=== PATIENT | male | born 1945 | race Caucasian/White ===

== ENCOUNTER → 2016-10-07 | Outpatient (CLI) | payer MEDICARE, OTHER ==
[2016-10-07 08:34] LABS: CHLORIDE,CL 108 mmol/L (98-110); SODIUM,NA 141 mmol/L (136-146)
== END ==
LOC: MW.CHFP 07:46
PROVIDERS: ATTEND Emergency Medicine
DX: I25.10 Atherosclerotic heart disease of native coronary artery without angina pectoris (principal); Z85.46 Personal history of malignant neoplasm of prostate
CPT/HCPCS: 36415; 80053; 80061; 84153; 85027

== ENCOUNTER → 2016-11-10 | Outpatient (CLI) | payer MEDICARE, OTHER | LOC: MW.CHFP 08:00 | PROVIDERS: ATTEND Emergency Medicine | DX: R05 Cough (principal); R09.82 Postnasal drip | CPT/HCPCS: G0463 ==

== ENCOUNTER 2019-05-13 10:10 | Observation (INO) | payer MEDICARE, OTHER ==
[2019-05-13] MEDS ORDERED: Sodium Chloride 0.9% 10 ML Syringe FLUSH PRN (10:16)
[2019-05-13] MEDS ORDERED: Sodium Chloride 0.9% 2.5 ML Syringe FLUSH PRN (10:16)
--- NOTE | 2019-05-13 10:16 | EDM.PDOC ---
ED HPI GENERAL MEDICAL PROBLEM - General Stated Complaint: UPPER ABDOMEN/CHEST PAIN Time Seen by Provider: 05/13/19 10:11 Source of Information: Reports: Patient History Limitations: Reports: No Limitations - History of Present Illness INITIAL COMMENTS - FREE TEXT/NARRATIVE: HISTORY AND PHYSICAL: History of present illness: Patient is a 74-year-old male who presents to the emergency room today with complaints of epigastric/chest pain. He states he has had three episodes, with the first one starting on Monday - which lasted anywhere from 15 minutes to an hour. Denies the pain being precipitated by eating or drinking. Reports that the area does feel tender during the episode. Has associated diaphoresis, nausea , and dry heaves. Patient reports when the pain started on Monday he did call his son who is a physician, he encouraged him to take some omeprazole. Patient states he did take the omeprazole on Monday evening. Today he went to breakfast and had decaf coffee and pancake; shortly after started having pain. Patient states he is concerned it could be his gallbladder; reports he has known gallstones but has never had any "real problem" with them before. Patient reports he is currently pain free. Patient has a known history of atrial fibrillation (on warfarin) and previous stent placement. Patient denies any fever, chills, headache, change in vision, syncope or near syncope. Denies any back pain, shortness of breath or cough. Denies any abdominal pain, nausea, vomiting, diarrhea, constipation or dysuria. Has not noted any blood in urine or stool. Patient has been eating and drinking appropriately. Review of systems: As per history of present illness and below otherwise all systems reviewed and negative. Past medical history: As per history of present illness and as reviewed below otherwise noncontributory. Surgical history: As per history of present illness and as reviewed below otherwise noncontributory. Social history: See social history for further information Family history: As per history of present illness and as reviewed below otherwise noncontributory. Physical exam: General: Well developed and well nourished 74-year-old male. Alert and oriented. Nontoxic appearing and in no acute distress. HEENT: Atraumatic, normocephalic, pupils equal and reactive bilaterally, negative for conjunctival pallor or scleral icterus, mucous membranes moist, trachea midline. No drooling or trismus noted. No meningeal signs. No hot potato voice noted. Lungs: Clear to auscultation, breath sounds equal bilaterally, chest nontender. Heart: S1S2, regular rate and rhythm without overt murmur Abdomen: Soft, nondistended, nontender. Negative for masses or hepatosplenomegaly. Negative for costovertebral tenderness. Pelvis: Stable nontender. Skin: Intact, warm, dry. No lesions or rashes noted. Extremities: Atraumatic, moves all extremities per self without difficulty or deficits, negative for cords or calf pain. Neurovascular unremarkable. Neuro: Awake, alert, oriented. Cranial nerves II through XII unremarkable. Cerebellum unremarkable. Motor and sensory unremarkable throughout. Exam nonfocal. Notes: Chest x-ray shows right basilar atelectasis. Nothing acute is otherwise seen. Ultrasound shows no acute findings. EKG shows the atrial fibrillation. Dr Mckeon, hospitalist electrophysiology nurse practitioner, was contacted on this patient. She will admit for observation for further care/management. Patient is aware and agreeable. Diagnostics: CBC, CMP, Troponin, EKG, INR, CXR, Gallbladder US Therapeutics: NS at 125ml/hr, Protonix Impression: Chest Pain History of Atrial Fib Epigastric Pain Plan: Observation admission to med/surg Definitive disposition and diagnosis as appropriate pending reevaluation and review of above. - Related Data Allergies Allergy/AdvReac Type Severity Reaction Status Date / Time latex Allergy Itching Verified 05/13/19 13:26 oxycodone HCl Allergy Stomach Verified 05/13/19 13:26 [From OxyContin] Upset Home Meds: Home Meds Carvedilol [Coreg] 12.5 mg PO BID 10/05/15 [History] Clopidogrel [Plavix] 75 mg PO DAILY 10/05/15 [History] Nitroglycerin [Nitrostat] 0.4 mg PO Q5M PRN 10/05/15 [History] Warfarin [Coumadin] 2.5 mg PO .MONTHUR 10/05/15 [History] Warfarin [Coumadin] 5 mg PO .[id number] 10/05/15 [History] atorvaSTATin [Lipitor] 40 mg PO BEDTIME 10/05/15 [History] Oxybutynin 5 mg PO QAM 05/13/19 [History] Past Medical History Cardiovascular History: Reports: High Cholesterol, Hypertension, CA, Stents Respiratory History: Reports: None Gastrointestinal History: Reports: None Genitourinary History: Reports: None Neurological History: Reports: None Psychiatric History: Reports: None Endocrine/Metabolic History: Reports: None Hematologic History: Reports: None Immunologic History: Reports: None Dermatologic History: Reports: None - Past Surgical History Head Surgeries/Procedures: Reports: None HEENT Surgical History: Reports: Tonsillectomy Musculoskeletal Surgical History: Reports: ORIF Other Musculoskeletal Surgeries/Procedures:: R hip ED ROS GENERAL - Review of Systems Review Of Systems: ROS reveals no pertinent complaints other than HPI. ED EXAM, GENERAL - Physical Exam Exam: See Below (See dictation) Course - Vital Signs Last Recorded V/S: Last Vital Signs Temp 97.9 F 05/13/19 12:03 Pulse 104 H 05/13/19 12:03 Resp 18 05/13/19 12:03 BP 102/63 05/13/19 12:03 Pulse Ox 98 05/13/19 12:03 - Orders/Labs/Meds Orders: Active Orders 24 hr Category Date Time Status Admission Status [Patient Status] [ADT] Stat ADT 05/13/19 11:36 Active Cardiac Monitoring [RC] . DIRECTED Care 05/13/19 11:36 Active Sodium Chloride 0.9% [Saline Flush] Med 05/13/19 10:16 Active 10 ml FLUSH ASDIRECTED PRN Sodium Chloride 0.9% [Saline Flush] Med 05/13/19 10:16 Active 2.5 ml FLUSH ASDIRECTED PRN Saline Lock Insert [OM.PC] Stat Oth 05/13/19 10:16 Ordered Medication Orders Acetaminophen (Tylenol) 650 mg PO Q4H PRN PRN Reason: Pain (Mild 1-3)/fever Atorvastatin Calcium (Lipitor) 40 mg PO BEDTIME ADAM Carvedilol (Coreg) 12.5 mg PO BID ADAM Clopidogrel Bisulfate (Plavix) 75 mg PO DAILY ADAM Morphine Sulfate (Morphine) 2 mg IVPUSH Q2H PRN PRN Reason: Pain (severe 7-10) Stop: 05/14/19 12:02 Nitroglycerin (Nitrostat) 0.4 mg SL Q5M PRN PRN Reason: Chest Pain Ondansetron HCl (Zofran Odt) 4 mg PO Q4H PRN PRN Reason: nausea, able to take PO Ondansetron HCl (Zofran) 4 mg IVPUSH Q4H PRN PRN Reason: Nausea Oxybutynin Chloride (Oxybutynin) 5 mg PO DAILY [facility] Pantoprazole Sodium (Protonix) 40 mg PO ACBREAKFAST [facility] Sodium Chloride (Saline Flush) 10 ml FLUSH ASDIRECTED PRN PRN Reason: Keep Vein Open Sodium Chloride (Saline Flush) 2.5 ml FLUSH ASDIRECTED PRN PRN Reason: Keep Vein Open Warfarin Sodium (Coumadin Ask) 1 each PO DAILY@1400 [facility] Last Admin: 05/13/19 16:16 Dose: Warfarin Sodium (Coumadin) 5 mg PO DAILY@1800 ONE Stop: 05/13/19 18:01 Labs: Laboratory Tests 05/13/19 05/13/19 05/13/19 Range/Units 10:30 10:30 10:30 WBC 9.35 (4.0-11.0) K/uL RBC 4.81 (4.50-5.90) M/uL Hgb 14.1 (13.0-17.0) g/dL Hct 42.9 (38.0-50.0) % MCV 89.2 (80.0-98.0) fL MCH 29.3 (27.0-32.0) pg MCHC 32.9 (31.0-37.0) g/dL RDW Std Deviation 47.2 (28.0-62.0) fl RDW Coeff of Rosa Isela 15 (11.0-15.0) % Plt Count 235 (150-400) K/uL MPV 10.10 (7.40-12.00) fL Add Manual Diff YES Neutrophils % (Manual) 76 (48.0-80.0) % Lymphocytes % (Manual) 9 L (16.0-40.0) % Monocytes % (Manual) 14 (0.0-15.0) % Eosinophils % (Manual) 1 (0.0-7.0) % Nucleated RBC % 0.0 /100WBC Absolute Seg Neuts 7.1 H (1.4-5.7) Lymphocytes # (Manual) 0.8 (0.6-2.4) Monocytes # (Manual) 1.3 H (0.0-0.8) Eosinophils # (Manual) 0.1 (0.0-0.7) Nucleated RBCs # 0 K/uL INR 2.11 Sodium 134 L (136-148) mmol/L Potassium 4.5 (3.5-5.1) mmol/L Chloride 98 (98-107) mmol/L Carbon Dioxide 25.8 (21.0-32.0) mmol/L BUN 18 (7.0-18.0) mg/dL Creatinine 1.3 (0.8-1.3) mg/dL Est Cr Clr Drug Dosing 56.34 mL/min Estimated GFR (MDRD) 54.0 ml/min Glucose 119 H (74-106) mg/dL Hemoglobin A1c (4.5-6.2) % Calcium 8.7 (8.5-10.1) mg/dL Total Bilirubin 1.4 H (0.2-1.0) mg/dL AST 57 H (15-37) IU/L ALT 56 (14-63) IU/L Alkaline Phosphatase 126 H (46-116) U/L Troponin I < 0.050 (0.000-0.056) ng/mL Total Protein 7.9 (6.4-8.2) g/dL Albumin 2.8 L (3.4-5.0) g/dL Globulin 5.1 H (2.6-4.0) g/dL Albumin/Globulin Ratio 0.6 L (0.9-1.6) Lipase 150 (73-393) U/L TSH 3rd Generation (0.36-3.74) uIU/mL 05/13/19 05/13/19 Range/Units 10:30 10:30 WBC (4.0-11.0) K/uL RBC (4.50-5.90) M/uL Hgb (13.0-17.0) g/dL Hct (38.0-50.0) % MCV (80.0-98.0) fL MCH (27.0-32.0) pg MCHC (31.0-37.0) g/dL RDW Std Deviation (28.0-62.0) fl RDW Coeff of Rosa Isela (11.0-15.0) % Plt Count (150-400) K/uL MPV (7.40-12.00) fL Add Manual Diff Neutrophils % (Manual) (48.0-80.0) % Lymphocytes % (Manual) (16.0-40.0) % Monocytes % (Manual) (0.0-15.0) % Eosinophils % (Manual) (0.0-7.0) % Nucleated RBC % /100WBC Absolute Seg Neuts (1.4-5.7) Lymphocytes # (Manual) (0.6-2.4) Monocytes # (Manual) (0.0-0.8) Eosinophils # (Manual) (0.0-0.7) Nucleated RBCs # K/uL INR Sodium (136-148) mmol/L Potassium (3.5-5.1) mmol/L Chloride (98-107) mmol/L Carbon Dioxide (21.0-32.0) mmol/L BUN (7.0-18.0) mg/dL Creatinine (0.8-1.3) mg/dL Est Cr Clr Drug Dosing mL/min Estimated GFR (MDRD) ml/min Glucose (74-106) mg/dL Hemoglobin A1c 6.1 (4.5-6.2) % Calcium (8.5-10.1) mg/dL Total Bilirubin (0.2-1.0) mg/dL AST (15-37) IU/L ALT (14-63) IU/L Alkaline Phosphatase (46-116) U/L Troponin I (0.000-0.056) ng/mL Total Protein (6.4-8.2) g/dL Albumin (3.4-5.0) g/dL Globulin (2.6-4.0) g/dL Albumin/Globulin Ratio (0.9-1.6) Lipase (73-393) U/L TSH 3rd Generation 3.30 (0.36-3.74) uIU/mL Meds: Medications Generic Name Dose Route Start Last Admin Trade Name Freq PRN Reason Stop Dose Admin Acetaminophen 650 mg 05/13/19 12:00 Tylenol PO Q4H PRN Pain (Mild 1-3)/fever Atorvastatin Calcium 40 mg 05/13/19 21:00 Lipitor PO BEDTIME [facility] Carvedilol 12.5 mg 05/13/19 21:00 Coreg PO BID [facility] Clopidogrel Bisulfate 75 mg 05/14/19 09:00 Plavix PO DAILY [facility] Morphine Sulfate 2 mg 05/13/19 12:00 Morphine IVPUSH 05/14/19 12:02 Q2H PRN Pain (severe 7-10) Nitroglycerin 0.4 mg 05/13/19 12:07 Nitrostat SL Q5M PRN Chest Pain Ondansetron HCl 4 mg 05/13/19 12:00 Zofran Odt PO Q4H PRN nausea, able to take PO Ondansetron HCl 4 mg 05/13/19 12:00 Zofran IVPUSH Q4H PRN Nausea Oxybutynin Chloride 5 mg 05/14/19 09:00 Oxybutynin PO DAILY [facility] Pantoprazole Sodium 40 mg 05/14/19 07:30 Protonix PO ACBREAKFAST [facility] Sodium Chloride 10 ml 05/13/19 10:16 Saline Flush FLUSH ASDIRECTED PRN Keep Vein Open Sodium Chloride 2.5 ml 05/13/19 10:16 Saline Flush FLUSH ASDIRECTED PRN Keep Vein Open Warfarin Sodium 1 each 05/13/19 14:00 05/13/19 16:16 Coumadin Ask PO Not Given DAILY@1400 [facility] Warfarin Sodium 5 mg 05/13/19 18:00 Coumadin PO 05/13/19 18:01 DAILY@1800 ONE Discontinued Medications Generic Name Dose Route Start Last Admin Trade Name Freq PRN Reason Stop Dose Admin Aspirin 81 mg 05/14/19 09:00 Halfprin PO DAILY [facility] Al Hydroxide/Mg Hydroxide 15 0 ml 05/13/19 12:03 05/13/19 13:55 ml/ Lidocaine HCl 5 ml PO 05/13/19 12:04 Not Given ONETIME ONE Sodium Chloride 1,000 mls @ 125 mls/hr 05/13/19 10:35 05/13/19 10:56 Normal Saline IV 05/13/19 18:34 125 mls/hr STAT ONE Administration Sodium Chloride Confirm 05/13/19 10:51 05/13/19 13:08 Normal Saline Administered 05/13/19 10:52 Not Given Dose 20 mls @ as directed .ROUTE .STK-MED ONE Oxybutynin Chloride 5 mg 05/13/19 14:00 05/13/19 15:16 Oxybutynin PO Not Given TID [facility] Pantoprazole Sodium 80 mg 05/13/19 10:35 05/13/19 10:56 Protonix Iv IVPUSH 05/13/19 10:36 80 mg .BOLUS ONE Administration Departure - Departure Time of Disposition: 16:17 Disposition: Refer to Observation Clinical Impression: Chest pain, rule out acute myocardial infarction, Epigastric abdominal pain - My Orders Last 24 Hours: My Active Orders 05/13/19 10:16 Sodium Chloride 0.9% [Saline Flush] 10 ml FLUSH ASDIRECTED PRN Sodium Chloride 0.9% [Saline Flush] 2.5 ml FLUSH ASDIRECTED PRN Saline Lock Insert [OM.PC] Stat 05/13/19 11:36 Admission Status [Patient Status] [ADT] Stat Cardiac Monitoring [RC] . DIRECTED - Assessment/Plan Last 24 Hours: My Active Orders 05/13/19 10:16 Sodium Chloride 0.9% [Saline Flush] 10 ml FLUSH ASDIRECTED PRN Sodium Chloride 0.9% [Saline Flush] 2.5 ml FLUSH ASDIRECTED PRN Saline Lock Insert [OM.PC] Stat 05/13/19 11:36 Admission Status [Patient Status] [ADT] Stat Cardiac Monitoring [RC] . DIRECTED
[2019-05-13] MEDS ORDERED: Sodium Chloride 0.9% 1,000 ML IV ONE (10:35)
[2019-05-13] MEDS ORDERED: Pantoprazole 40 MG Vial IVPUSH ONE (10:35)
[2019-05-13] MEDS ORDERED: Sodium Chloride 0.9% 20 ML ONE (10:51)
--- NOTE | 2019-05-13 11:12 | CR ---
Chest: Portable view of the chest was obtained. Comparison: Prior chest x-ray 03/31/16. Linear densities are seen within the right lung base most likely due to atelectasis. Lungs otherwise are clear. Heart size is within normal limits for portable technique. Thoracic aorta appears within normal limits. Slight degenerative change is noted within both shoulders as well as endplate spurring scattered within the spine. Impression: 1. Right basilar atelectasis. 2. Nothing acute is otherwise seen. Diagnostic code #2 MTDD
[2019-05-13 11:22] LABS: BLOOD UREA NITROGEN,BUN 18 mg/dL (7.0-18.0); CARBON DIOXIDE,CO2 25.8 mmol/L (21.0-32.0); CHLORIDE,CL 98 mmol/L (98-107); GLUCOSE RANDOM 119 mg/dL (74-106); LIPASE 150 U/L (73-393); POTASSIUM,K 4.5 mmol/L (3.5-5.1); SODIUM,NA 134 mmol/L (136-148)
--- NOTE | 2019-05-13 11:26 | US ---
Limited abdominal ultrasound: Multiple real-time images of the right upper abdomen were obtained. Liver shows no focal abnormality. Pancreas is incompletely seen. Visualized portions of the pancreas appear within normal limits. Gallbladder shows no shadowing gallstones. No gallbladder wall thickening or biliary duct dilatation is seen. Right kidney shows no hydronephrosis or mass. Right kidney length is 12.2 cm. Impression: No abnormality is appreciated on right upper quadrant abdominal ultrasound exam. Diagnostic code #1 MTDD
[2019-05-13] MEDS ORDERED: Morphine 10 MG/ML Syringe IVPUSH PRN (12:00)
[2019-05-13] MEDS ORDERED: Ondansetron 4 MG/2 ML SDV IVPUSH PRN (12:00)
[2019-05-13] MEDS ORDERED: Ondansetron 4 MG Tab.DIS PO PRN (12:00)
[2019-05-13] MEDS ORDERED: Acetaminophen 325 MG Tab PO PRN (12:00)
[2019-05-13] MEDS ORDERED: Alum Hydrox/Mag Hydrox/Simeth 15 ML, Lidocaine 2% 5 ML PO ONE ×2 (12:03)
[2019-05-13] MEDS ORDERED: Nitroglycerin 0.4 MG Tab.SL SL PRN (12:07)
[2019-05-13 12:29] LABS: HEMOGLOBIN A1C 6.1 % (4.5-6.2)
--- NOTE | 2019-05-13 13:31 | PCM.HP.2 ---
H&P History of Present Illness - General Date of Service: 05/13/19 Admit Problem/Dx: Admission Diagnosis/Problem Admission Diagnosis/Problem Chest pain, rule out acute myocardial infarction - History of Present Illness Initial Comments - Free Text/Narative: 74 y/o male with history of CAD s/p stent placement. Presenting to the ER complaining of epigastric pain for the past 3-4 days. Patient states that he started having sharp epigastric pain on Monday night when laying down. Took some Tums and pain resolved. Pain is intermittent, worse after eating. Had pain this morning after eating some pancakes. No vomiting but does endorse some dry heaves. No diaphoresis, radiation to neck or arms. No trauma to abdomen or chest. denies any dysuria, diarrhea. Has been taking some omeprazole since yesterday. No chest pain or dyspnea with exertion. In the ER, patient was asymptomatic. No chest pain. Troponin was negative. EKG showed Afib, rate controlled. No acute ST changes. Chest xray showed right basilar atelectasis. RUQ U/S was negative for any gallstones. - Related Data Allergies/Adverse Reactions: Allergies Allergy/AdvReac Type Severity Reaction Status Date / Time latex Allergy Itching Verified 05/13/19 13:26 oxycodone HCl Allergy Stomach Verified 05/13/19 13:26 [From OxyContin] Upset Home Medications: Home Meds Carvedilol [Coreg] 12.5 mg PO BID 10/05/15 [History] Clopidogrel [Plavix] 75 mg PO DAILY 10/05/15 [History] Nitroglycerin [Nitrostat] 0.4 mg PO Q5M PRN 10/05/15 [History] Warfarin [Coumadin] 2.5 mg PO .MONTHUR 10/05/15 [History] Warfarin [Coumadin] 5 mg PO .TUESWEDFRISATSUN 10/05/15 [History] atorvaSTATin [Lipitor] 40 mg PO BEDTIME 10/05/15 [History] Oxybutynin 5 mg PO QAM 05/13/19 [History] Past Medical History Cardiovascular History: Reports: High Cholesterol, Hypertension, AL, Stents Respiratory History: Reports: None Gastrointestinal History: Reports: Other (See Below) Other Gastrointestinal History: heartburn if overeating Genitourinary History: Reports: Prostate Disorder Other Genitourinary History: states has had prostate surgery for cancer in 1998 Neurological History: Reports: None Psychiatric History: Reports: None Endocrine/Metabolic History: Reports: None Hematologic History: Reports: None Immunologic History: Reports: None Oncologic (Cancer) History: Reports: Prostate Dermatologic History: Reports: None - Infectious Disease History Infectious Disease History: Reports: Chicken Pox - Past Surgical History Head Surgeries/Procedures: Reports: None HEENT Surgical History: Reports: Tonsillectomy Male Surgical History: Reports: Prostatectomy Other Male Surgeries/Procedures: urinates frequently in small ammounts. Musculoskeletal Surgical History: Reports: Hip Replacement Other Musculoskeletal Surgeries/Procedures:: R hip Social & Family History - Tobacco Use Smoking Status *Q: Former Smoker Years of Tobacco use: 20 Used Tobacco, but Quit: Yes Month/Year Tobacco Last Used: 1998 Second Hand Smoke Exposure: No - Caffeine Use Caffeine Use: Reports: Coffee, Soda - Alcohol Use Days Per Week of Alcohol Use: 1 Number of Drinks Per Day: 1 Total Drinks Per Week: 1 Date of Last Drink: 04/10/19 - Recreational Drug Use Recreational Drug Use: No H&P Review of Systems - Review of Systems: Review Of Systems: ROS reveals no pertinent complaints other than HPI. Exam - Exam Exam: See Below - Vital Signs Vital Signs: Last Vital Signs Temp 36.6 C 05/13/19 12:00 Pulse 104 H 05/13/19 12:00 Resp 16 05/13/19 12:00 BP 110/69 05/13/19 12:00 Pulse Ox 97 05/13/19 12:00 Weight: 36.6 kg - Exam General: Alert, Oriented, Cooperative HEENT: Mucosa Moist & [place] Lungs: Clear to Auscultation, Normal Respiratory Effort. No: Crackles, Wheezing Cardiovascular: Irregular Rhythm GI/Abdominal Exam: Normal Bowel Sounds, Soft, Non-Tender Extremities: Normal Inspection, No Pedal Edema Skin: Warm, Dry Neuro Extensive - Mental Status: Alert, Oriented x3 - Patient Data Lab Results Last 24 hrs: Laboratory Results - last 24 hr 05/13/19 05/13/19 05/13/19 Range/Units 10:30 10:30 10:30 WBC 9.35 (4.0-11.0) K/uL RBC 4.81 (4.50-5.90) M/uL Hgb 14.1 (13.0-17.0) g/dL Hct 42.9 (38.0-50.0) % MCV 89.2 (80.0-98.0) fL MCH 29.3 (27.0-32.0) pg MCHC 32.9 (31.0-37.0) g/dL RDW Std Deviation 47.2 (28.0-62.0) fl RDW Coeff of Rosa Isela 15 (11.0-15.0) % Plt Count 235 (150-400) K/uL MPV 10.10 (7.40-12.00) fL Add Manual Diff YES Neutrophils % (Manual) 76 (48.0-80.0) % Lymphocytes % (Manual) 9 L (16.0-40.0) % Monocytes % (Manual) 14 (0.0-15.0) % Eosinophils % (Manual) 1 (0.0-7.0) % Nucleated RBC % 0.0 /100WBC Absolute Seg Neuts 7.1 H (1.4-5.7) Lymphocytes # (Manual) 0.8 (0.6-2.4) Monocytes # (Manual) 1.3 H (0.0-0.8) Eosinophils # (Manual) 0.1 (0.0-0.7) Nucleated RBCs # 0 K/uL INR 2.11 Sodium 134 L (136-148) mmol/L Potassium 4.5 (3.5-5.1) mmol/L Chloride 98 (98-107) mmol/L Carbon Dioxide 25.8 (21.0-32.0) mmol/L BUN 18 (7.0-18.0) mg/dL Creatinine 1.3 (0.8-1.3) mg/dL Est Cr Clr Drug Dosing 56.34 mL/min Estimated GFR (MDRD) 54.0 ml/min Glucose 119 H (74-106) mg/dL Hemoglobin A1c (4.5-6.2) % Calcium 8.7 (8.5-10.1) mg/dL Total Bilirubin 1.4 H (0.2-1.0) mg/dL AST 57 H (15-37) IU/L ALT 56 (14-63) IU/L Alkaline Phosphatase 126 H (46-116) U/L Troponin I < 0.050 (0.000-0.056) ng/mL Total Protein 7.9 (6.4-8.2) g/dL Albumin 2.8 L (3.4-5.0) g/dL Globulin 5.1 H (2.6-4.0) g/dL Albumin/Globulin Ratio 0.6 L (0.9-1.6) Lipase 150 (73-393) U/L TSH 3rd Generation (0.36-3.74) uIU/mL 05/13/19 05/13/19 Range/Units 10:30 10:30 WBC (4.0-11.0) K/uL RBC (4.50-5.90) M/uL Hgb (13.0-17.0) g/dL Hct (38.0-50.0) % MCV (80.0-98.0) fL MCH (27.0-32.0) pg MCHC (31.0-37.0) g/dL RDW Std Deviation (28.0-62.0) fl RDW Coeff of Rosa Isela (11.0-15.0) % Plt Count (150-400) K/uL MPV (7.40-12.00) fL Add Manual Diff Neutrophils % (Manual) (48.0-80.0) % Lymphocytes % (Manual) (16.0-40.0) % Monocytes % (Manual) (0.0-15.0) % Eosinophils % (Manual) (0.0-7.0) % Nucleated RBC % /100WBC Absolute Seg Neuts (1.4-5.7) Lymphocytes # (Manual) (0.6-2.4) Monocytes # (Manual) (0.0-0.8) Eosinophils # (Manual) (0.0-0.7) Nucleated RBCs # K/uL INR Sodium (136-148) mmol/L Potassium (3.5-5.1) mmol/L Chloride (98-107) mmol/L Carbon Dioxide (21.0-32.0) mmol/L BUN (7.0-18.0) mg/dL Creatinine (0.8-1.3) mg/dL Est Cr Clr Drug Dosing mL/min Estimated GFR (MDRD) ml/min Glucose (74-106) mg/dL Hemoglobin A1c 6.1 (4.5-6.2) % Calcium (8.5-10.1) mg/dL Total Bilirubin (0.2-1.0) mg/dL AST (15-37) IU/L ALT (14-63) IU/L Alkaline Phosphatase (46-116) U/L Troponin I (0.000-0.056) ng/mL Total Protein (6.4-8.2) g/dL Albumin (3.4-5.0) g/dL Globulin (2.6-4.0) g/dL Albumin/Globulin Ratio (0.9-1.6) Lipase (73-393) U/L TSH 3rd Generation 3.30 (0.36-3.74) uIU/mL Result Diagrams: 05/13/19 10:30 05/13/19 10:30 Problem List Initiated/Reviewed/Updated: Yes Orders Last 24hrs: Active Orders 24 hr Category Date Time Status Admission Status [Patient Status] [ADT] Stat ADT 05/13/19 11:36 Active Bedrest Bathroom Privileges [RC] ASDIRECTED Care 05/13/19 12:00 Inactive Cardiac Monitoring [RC] . DIRECTED Care 05/13/19 11:36 Active Intake and Output [RC] Q12H Care 05/13/19 12:00 Active Oxygen Therapy [RC] PRN Care 05/13/19 12:00 Active Up With Assistance [RC] ASDIRECTED Care 05/13/19 13:06 Active VTE/DVT Education [RC] PER UNIT ROUTINE Care 05/13/19 12:00 Active Vital Signs [RC] Q4H Care 05/13/19 12:00 Active Heart Healthy Diet [DIET] Diet 05/13/19 Lunch Active CBC WITH AUTO DIFF [HEME] AM Lab 05/14/19 05:11 Ordered COMPREHENSIVE METABOLIC PN,CMP [CHEM] AM Lab 05/14/19 05:11 Ordered INR,PT,PROTHROMBIN TIME [COAG] AM Lab 05/14/19 05:11 Ordered TROPONIN I [CHEM] Q3H Lab 05/13/19 14:00 Ordered TROPONIN I [CHEM] Q3H Lab 05/13/19 17:00 Ordered TROPONIN I [CHEM] Q3H Lab 05/13/19 20:00 Ordered Acetaminophen [Tylenol] Med 05/13/19 12:00 Active 650 mg PO Q4H PRN Aspirin [Halfprin] Med 05/14/19 09:00 Active 81 mg PO DAILY Carvedilol [Coreg] Med 05/13/19 21:00 Active 12.5 mg PO BID Clopidogrel [Plavix] Med 05/14/19 09:00 Active 75 mg PO DAILY Morphine Med 05/13/19 12:00 Active 2 mg IVPUSH Q2H PRN Nitroglycerin [Nitrostat] Med 05/13/19 12:07 Active 0.4 mg SL Q5M PRN Ondansetron [Zofran ODT] Med 05/13/19 12:00 Active 4 mg PO Q4H PRN Ondansetron [Zofran] Med 05/13/19 12:00 Active 4 mg IVPUSH Q4H PRN Oxybutynin Med 05/13/19 14:00 Active 5 mg PO TID Pantoprazole [ProTONIX] Med 05/14/19 07:30 Active 40 mg PO ACBREAKFAST Sodium Chloride 0.9% [Normal Saline] 1,000 ml Med 05/13/19 10:35 Active IV STAT Sodium Chloride 0.9% [Saline Flush] Med 05/13/19 10:16 Active 10 ml FLUSH ASDIRECTED PRN Sodium Chloride 0.9% [Saline Flush] Med 05/13/19 10:16 Active 2.5 ml FLUSH ASDIRECTED PRN Warfarin Dosing [Coumadin Ask] Med 05/13/19 14:00 Active 1 each PO DAILY@1400 Warfarin [Coumadin] Med 05/13/19 18:00 Once 5 mg PO DAILY@1800 ONE atorvaSTATin [Lipitor] Med 05/13/19 21:00 Active 40 mg PO BEDTIME Saline Lock Insert [OM.PC] Stat Oth 05/13/19 10:16 Ordered Resuscitation Status Routine Resus Stat 05/13/19 12:00 Ordered Medication Orders Acetaminophen (Tylenol) 650 mg PO Q4H PRN PRN Reason: Pain (Mild 1-3)/fever Aspirin (Halfprin) 81 mg PO DAILY ADAM Atorvastatin Calcium (Lipitor) 40 mg PO BEDTIME ADAM Carvedilol (Coreg) 12.5 mg PO BID ADAM Clopidogrel Bisulfate (Plavix) 75 mg PO DAILY ADAM Sodium Chloride (Normal Saline) 1,000 mls @ 125 mls/hr IV STAT ONE Stop: 05/13/19 18:34 Last Admin: 05/13/19 10:56 Dose: 125 mls/hr Morphine Sulfate (Morphine) 2 mg IVPUSH Q2H PRN PRN Reason: Pain (severe 7-10) Stop: 05/14/19 12:02 Nitroglycerin (Nitrostat) 0.4 mg SL Q5M PRN PRN Reason: Chest Pain Ondansetron HCl (Zofran Odt) 4 mg PO Q4H PRN PRN Reason: nausea, able to take PO Ondansetron HCl (Zofran) 4 mg IVPUSH Q4H PRN PRN Reason: Nausea Oxybutynin Chloride (Oxybutynin) 5 mg PO TID ADAM Pantoprazole Sodium (Protonix) 40 mg PO ACBREAKFAST [facility] Sodium Chloride (Saline Flush) 10 ml FLUSH ASDIRECTED PRN PRN Reason: Keep Vein Open Sodium Chloride (Saline Flush) 2.5 ml FLUSH ASDIRECTED PRN PRN Reason: Keep Vein Open Warfarin Sodium (Coumadin Ask) 1 each PO DAILY@1400 [facility] Warfarin Sodium (Coumadin) 5 mg PO DAILY@1800 ONE Stop: 05/13/19 18:01 Assessment/Plan Comment:: A: 1. Epigastric pain, ACS rule out 2. Afib, on warfarin 3. PMD CAD s/p stents, hypertension P: 1. Epigastric pain. Suspect PUD, however since patient is high risk due to his cardiac history, we will trend troponins Q3H x3. Telemetry. Aspirin, Morphine, Nitroglycerin. Ordered Echo, HgA1c, TSH, lipid panel. Pantoprazole 40 mg PO daily. GI cocktail PRN. 2. Afib, rate controlled. Continue home dose of warfarin. Monitor INR daily. Continue Carvedilol. 3. PMH CAD s/p stents, HTN- will resume home medications. Dispo: 1-2 days
[2019-05-13] MEDS ORDERED: Oxybutynin 5 MG Tab PO SCH (14:00)
[2019-05-13] MEDS ORDERED: Warfarin 2.5 MG Tab PO ONE (18:00)
[2019-05-13] MEDS: Carvedilol 12.5 MG Tab PO SCH (20:12)
[2019-05-13] MEDS ORDERED: atorvaSTATin 40 MG Tab PO SCH (21:00)
[2019-05-14 06:11] LABS: BLOOD UREA NITROGEN,BUN 14 mg/dL (7.0-18.0); CARBON DIOXIDE,CO2 26.3 mmol/L (21.0-32.0); CHLORIDE,CL 104 mmol/L (98-107); GLUCOSE RANDOM 99 mg/dL (74-106); SODIUM,NA 137 mmol/L (136-148)
[2019-05-14] MEDS ORDERED: Morphine 2 MG/ML Syringe IVPUSH PRN (07:30)
[2019-05-14] MEDS ORDERED: Pantoprazole 40 MG Tab.CR PO SCH (07:30)
[2019-05-14] MEDS: Carvedilol 12.5 MG Tab PO SCH (08:14)
[2019-05-14] MEDS ORDERED: Aspirin 81 MG Tab.EC PO SCH (09:00)
[2019-05-14] MEDS ORDERED: Oxybutynin 5 MG Tab PO SCH (09:00)
[2019-05-14] MEDS ORDERED: Clopidogrel 75 MG Tab PO SCH (09:00)
[2019-05-14] MEDS ORDERED: Warfarin 2.5 MG Tab PO SCH (09:00)
[2019-05-14 12:19] VITALS: BP 121/52; PULSE 78
--- NOTE | 2019-05-14 14:08 | ECHO ---
EXAM DATE: 05/13/19 PATIENT'S AGE: 74 The echocardiogram report can be seen in this patient's EMR (Electronic Medical Record) in the Reports section. The report has also been scanned into PACs. MIKE
--- NOTE | 2019-05-14 14:14 | PCM.DCSUM1 ---
Discharge Summary - Hospital Course Free Text/Narrative:: 74 y/o male with history of CAD s/p stent placement, Afib on warfarin who presented to the ER complaining of epigastric pain for the past 1 week. Worse at night after eating and laying down. Recently started taking omeprazole but did not work. He was admitted for ACS rule out due to his high risk and cardiac history. EKG was negative for any ST changes. Serial troponins were negative. Patient was asymptomatic during this hospitalization. No chest pain or epigastric pain at time of discharge. Echo showed some mild/moderate mitral regurgitation. His symptoms were attributed to PUD and was discharged home on pantoprazole 40 mg PO daily. In addition, he would benefit from an outpatient stress test due to his cardiac history and upper endoscopy if symptoms do not resolve with PPI. He was advised to follow-up with his PCP in 1-2 weeks. - Discharge Data Discharge Date: 05/14/19 Discharge Disposition: Home, Self-Care 01 Condition: Good - Referral to Home Health Primary Care Physician: Sher Goodrich MD - Patient Instructions Diet: Heart Healthy Diet Activity: As Tolerated Notify Provider of: Fever, Increased Pain, Swelling and Redness, Nausea and/or Vomiting - Discharge Plan *PRESCRIPTION DRUG MONITORING PROGRAM REVIEWED*: Not Applicable *COPY OF PRESCRIPTION DRUG MONITORING REPORT IN PATIENT [place]: Not Applicable Prescriptions/Med Rec: atorvaSTATin [Lipitor] 40 mg PO BEDTIME 30 Days #30 tablet Pantoprazole [ProTONIX] 40 mg PO ACBREAKFAST 30 Days #30 tab.cr Home Medications: Home Meds Carvedilol [Coreg] 12.5 mg PO BID 10/05/15 [History] Nitroglycerin [Nitrostat] 0.4 mg PO Q5M PRN 10/05/15 [History] Warfarin [Coumadin] 2.5 mg PO .MONTHUR 10/05/15 [History] Warfarin [Coumadin] 5 mg PO .TUESWEDFRISATSUN 10/05/15 [History] atorvaSTATin [Lipitor] 40 mg PO BEDTIME 10/05/15 [History] Oxybutynin 5 mg PO QAM 05/13/19 [History] Pantoprazole [ProTONIX] 40 mg PO ACBREAKFAST 30 Days #30 tab.cr 05/14/19 [Rx] atorvaSTATin [Lipitor] 40 mg PO BEDTIME 30 Days #30 tablet 05/14/19 [Rx] Patient Handouts: Peptic Ulcer, Nonspecific Chest Pain, Atorvastatin tablets, Pantoprazole tablets Forms: ED Department Discharge Referrals: Sher Goodrich MD [Primary Care Provider] - 05/22/19 3:15 pm - Discharge Summary/Plan Comment DC Time >30 min.: No - Patient Data Vitals - Most Recent: Last Vital Signs Temp 36.3 C 05/14/19 11:00 Pulse 78 05/14/19 11:00 Resp 18 05/14/19 11:00 BP 121/52 L 05/14/19 11:00 Pulse Ox 95 05/14/19 11:00 Weight - Most Recent: 36.6 kg I&O - Last 24 hours: Intake & Output 05/13/19 05/14/19 05/14/19 22:59 06:59 14:59 Intake Total 1125 840 400 Output Total 1200 800 750 Balance -75 40 -350 Lab Results - Last 24 hrs: Laboratory Results - last 24 hr 05/13/19 05/13/19 05/13/19 Range/Units 14:00 17:08 20:00 WBC (4.0-11.0) K/uL RBC (4.50-5.90) M/uL Hgb (13.0-17.0) g/dL Hct (38.0-50.0) % MCV (80.0-98.0) fL MCH (27.0-32.0) pg MCHC (31.0-37.0) g/dL RDW Std Deviation (28.0-62.0) fl RDW Coeff of Rosa Isela (11.0-15.0) % Plt Count (150-400) K/uL MPV (7.40-12.00) fL Add Manual Diff Neutrophils % (Manual) (48.0-80.0) % Band Neutrophils % % Lymphocytes % (Manual) (16.0-40.0) % Monocytes % (Manual) (0.0-15.0) % Eosinophils % (Manual) (0.0-7.0) % Basophils % (Manual) (0.0-1.5) % Nucleated RBC % /100WBC Absolute Seg Neuts (1.4-5.7) Band Neutrophils # Lymphocytes # (Manual) (0.6-2.4) Monocytes # (Manual) (0.0-0.8) Eosinophils # (Manual) (0.0-0.7) Basophils # (Manual) (0.0-0.1) Nucleated RBCs # K/uL INR Sodium (136-148) mmol/L Potassium (3.5-5.1) mmol/L Chloride (98-107) mmol/L Carbon Dioxide (21.0-32.0) mmol/L BUN (7.0-18.0) mg/dL Creatinine (0.8-1.3) mg/dL Est Cr Clr Drug Dosing mL/min Estimated GFR (MDRD) ml/min Glucose (74-106) mg/dL Calcium (8.5-10.1) mg/dL Total Bilirubin (0.2-1.0) mg/dL AST (15-37) IU/L ALT (14-63) IU/L Alkaline Phosphatase (46-116) U/L Troponin I < 0.050 < 0.050 < 0.050 (0.000-0.056) ng/mL Total Protein (6.4-8.2) g/dL Albumin (3.4-5.0) g/dL Globulin (2.6-4.0) g/dL Albumin/Globulin Ratio (0.9-1.6) Triglycerides (0-200) mg/dL Cholesterol (50-200) mg/dL LDL Cholesterol, Calc (60-180) mg/dL VLDL Cholesterol (5-55) mg/dL HDL Cholesterol (40-60) mg/dL Cholesterol/HDL Ratio (3.3-6.0) 05/14/19 05/14/19 05/14/19 Range/Units 05:18 05:18 05:18 WBC 7.42 (4.0-11.0) K/uL RBC 4.73 (4.50-5.90) M/uL Hgb 13.4 (13.0-17.0) g/dL Hct 41.5 (38.0-50.0) % MCV 87.7 (80.0-98.0) fL MCH 28.3 (27.0-32.0) pg MCHC 32.3 (31.0-37.0) g/dL RDW Std Deviation 46.9 (28.0-62.0) fl RDW Coeff of Rosa Isela 14 (11.0-15.0) % Plt Count 238 (150-400) K/uL MPV 9.90 (7.40-12.00) fL Add Manual Diff YES Neutrophils % (Manual) 47 L (48.0-80.0) % Band Neutrophils % 8 % Lymphocytes % (Manual) 14 L (16.0-40.0) % Monocytes % (Manual) 27 H (0.0-15.0) % Eosinophils % (Manual) 2 (0.0-7.0) % Basophils % (Manual) 2 H (0.0-1.5) % Nucleated RBC % 0.0 /100WBC Absolute Seg Neuts 3.5 (1.4-5.7) Band Neutrophils # 0.6 Lymphocytes # (Manual) 1.0 (0.6-2.4) Monocytes # (Manual) 2.0 H (0.0-0.8) Eosinophils # (Manual) 0.1 (0.0-0.7) Basophils # (Manual) 0.1 (0.0-0.1) Nucleated RBCs # 0 K/uL INR 2.14 Sodium 137 (136-148) mmol/L Potassium 4.0 (3.5-5.1) mmol/L Chloride 104 (98-107) mmol/L Carbon Dioxide 26.3 (21.0-32.0) mmol/L BUN 14 (7.0-18.0) mg/dL Creatinine 1.0 (0.8-1.3) mg/dL Est Cr Clr Drug Dosing 33.55 mL/min Estimated GFR (MDRD) > 60.0 ml/min Glucose 99 (74-106) mg/dL Calcium 8.4 L (8.5-10.1) mg/dL Total Bilirubin 0.7 (0.2-1.0) mg/dL AST 43 H (15-37) IU/L ALT 62 (14-63) IU/L Alkaline Phosphatase 119 H (46-116) U/L Troponin I (0.000-0.056) ng/mL Total Protein 7.1 (6.4-8.2) g/dL Albumin 2.6 L (3.4-5.0) g/dL Globulin 4.5 H (2.6-4.0) g/dL Albumin/Globulin Ratio 0.6 L (0.9-1.6) Triglycerides 72 (0-200) mg/dL Cholesterol 99 (50-200) mg/dL LDL Cholesterol, Calc 62 (60-180) mg/dL VLDL Cholesterol 14 (5-55) mg/dL HDL Cholesterol 23 L (40-60) mg/dL Cholesterol/HDL Ratio 4.3 (3.3-6.0) Med Orders - Current: Current Medications Discontinued Medications Acetaminophen (Tylenol) 650 mg PO Q4H PRN PRN Reason: Pain (Mild 1-3)/fever Aspirin (Halfprin) 81 mg PO DAILY [facility] Atorvastatin Calcium (Lipitor) 40 mg PO BEDTIME [facility] Last Admin: 05/13/19 20:12 Dose: 40 mg Carvedilol (Coreg) 12.5 mg PO BID [facility] Last Admin: 05/14/19 08:14 Dose: 12.5 mg Clopidogrel Bisulfate (Plavix) 75 mg PO DAILY [facility] Al Hydroxide/Mg Hydroxide 15 (ml/ Lidocaine HCl 5 ml) 0 ml PO ONETIME ONE Stop: 05/13/19 12:04 Last Admin: 05/13/19 13:55 Dose: Not Given Sodium Chloride (Normal Saline) 1,000 mls @ 125 mls/hr IV STAT ONE Stop: 05/13/19 18:34 Last Admin: 05/13/19 10:56 Dose: 125 mls/hr Sodium Chloride (Normal Saline) Confirm Administered Dose 20 mls @ as directed .ROUTE .STK-MED ONE Stop: 05/13/19 10:52 Last Admin: 05/13/19 13:08 Dose: Not Given Morphine Sulfate (Morphine) 2 mg IVPUSH Q2H PRN PRN Reason: Pain (severe 7-10) Stop: 05/14/19 12:02 Morphine Sulfate (Morphine) 2 mg IVPUSH Q2H PRN PRN Reason: Pain (severe 7-10) Stop: 05/14/19 12:02 Nitroglycerin (Nitrostat) 0.4 mg SL Q5M PRN PRN Reason: Chest Pain Ondansetron HCl (Zofran Odt) 4 mg PO Q4H PRN PRN Reason: nausea, able to take PO Ondansetron HCl (Zofran) 4 mg IVPUSH Q4H PRN PRN Reason: Nausea Oxybutynin Chloride (Oxybutynin) 5 mg PO TID [facility] Last Admin: 05/13/19 15:16 Dose: Not Given Oxybutynin Chloride (Oxybutynin) 5 mg PO DAILY [facility] Last Admin: 05/14/19 08:14 Dose: 5 mg Pantoprazole Sodium (Protonix Iv) 80 mg IVPUSH .BOLUS ONE Stop: 05/13/19 10:36 Last Admin: 05/13/19 10:56 Dose: 80 mg Pantoprazole Sodium (Protonix) 40 mg PO ACBREAKFAST [facility] Last Admin: 05/14/19 08:14 Dose: 40 mg Sodium Chloride (Saline Flush) 10 ml FLUSH ASDIRECTED PRN PRN Reason: Keep Vein Open Sodium Chloride (Saline Flush) 2.5 ml FLUSH ASDIRECTED PRN PRN Reason: Keep Vein Open Warfarin Sodium (Coumadin Ask) 1 each PO DAILY@1400 [facility] Last Admin: 05/13/19 16:16 Dose: Not Given Warfarin Sodium (Coumadin) 2.5 mg PO DAILY@1800 ONE Stop: 05/13/19 18:01 Last Admin: 05/13/19 17:43 Dose: 2.5 mg Warfarin Sodium (Coumadin) 5 mg PO DAILY@1800 ONE Stop: 05/14/19 18:01
[2019-05-14] MEDS ORDERED: Warfarin 5 MG Tab PO ONE (18:00)
== END 2019-05-14 12:20 | disposition home or self-care (01) ==
LOC: MW.ED 10:10 → MW.MS 11:45
PROVIDERS: ADMIT Student in an Organized Health Care Education/Training Program; ATTEND Student in an Organized Health Care Education/Training Program
DX: R10.13 Epigastric pain (principal); I25.10 Atherosclerotic heart disease of native coronary artery without angina pectoris; I48.91 Unspecified atrial fibrillation; E78.00 Pure hypercholesterolemia, unspecified; I10 Essential (primary) hypertension; Z79.01 Long term (current) use of anticoagulants; Z95.5 Presence of coronary angioplasty implant and graft; Z79.899 Other long term (current) drug therapy; Z91.040 Latex allergy status; Z88.5 Allergy status to narcotic agent; Z87.891 Personal history of nicotine dependence
CPT/HCPCS: 36415; 71045; 71045-26; 76705; 76705-26; 80053; 80061; 83036; 83690; 84443; 84484; 85025; 85610; 93005; 93306; 96361; 96374; 99282; 99284; A9270-GY; C9113; J7040

== ENCOUNTER 2019-05-25 08:19 | Observation (INO) | payer MEDICARE, OTHER ==
[2019-05-25] MEDS ORDERED: Sodium Chloride 0.9% 2.5 ML Syringe FLUSH PRN (08:21)
[2019-05-25] MEDS ORDERED: Nitroglycerin 0.4 MG Tab.SL SL PRN (08:21)
[2019-05-25] MEDS ORDERED: Sodium Chloride 0.9% 10 ML Syringe FLUSH PRN (08:21)
[2019-05-25] MEDS ORDERED: Sodium Chloride 0.9% 250 ML IV ONE (08:26)
--- NOTE | 2019-05-25 08:26 | EDM.PDOC ---
ED HPI GENERAL MEDICAL PROBLEM - General Stated Complaint: CHEST PAIN Time Seen by Provider: 05/25/19 08:21 Source of Information: Reports: Patient History Limitations: Reports: No Limitations - History of Present Illness INITIAL COMMENTS - FREE TEXT/NARRATIVE: History of present illness: []Patient woke up at 4 AM this morning with 8/10 right-sided dull chest pain with sweating. Patient does have coronary artery disease and has a stent. He denies any recent illnesses with fevers, chills, cough, abdominal pain, vomiting or diarrhea. Review of systems: As per history of present illness and below otherwise all systems reviewed and negative. Past medical history: As per history of present illness and as reviewed below otherwise noncontributory. Surgical history: As per history of present illness and as reviewed below otherwise noncontributory. Social history: No reported history of drug or alcohol abuse. Family history: As per history of present illness and as reviewed below otherwise noncontributory. Physical exam: General: Well developed, well nourished in NAD HEENT: Atraumatic, normocephalic, pupils reactive, negative for conjunctival pallor or scleral icterus, mucous membranes moist, throat clear, neck supple, nontender, trachea midline. Lungs: Clear to auscultation, breath sounds equal bilaterally, chest nontender. Heart: S1S2, regular, negative for clicks, rubs, or JVD. Abdomen: NABS, Soft, nondistended, nontender. Negative for masses or hepatosplenomegaly. Negative for costovertebral tenderness. Pelvis: Stable nontender. Genitourinary: Deferred. Rectal: Deferred. Extremities: Atraumatic, negative for cords or calf pain. Neurovascular unremarkable. Neuro: Awake, alert, oriented. Cranial nerves II through XII unremarkable. Cerebellum unremarkable. Motor and sensory unremarkable throughout. Exam nonfocal. Skin:warm and dry Diagnostics: EKG, chest x-ray, CBC, chemistry, troponin, inr Therapeutics: ivf, levaquin, nitro ED Course: stable Impression: chest apin Prescriptions: none Plan: admit to hopitalist Definitive disposition and diagnosis as appropriate pending reevaluation and review of above. chest Pain Score (Numeric/FACES): 2 - Related Data Allergies Allergy/AdvReac Type Severity Reaction Status Date / Time latex Allergy Itching Verified 05/25/19 10:07 oxycodone HCl Allergy Stomach Verified 05/25/19 10:07 [From OxyContin] Upset Home Meds: Home Meds Carvedilol [Coreg] 12.5 mg PO BID 10/05/15 [History] Nitroglycerin [Nitrostat] 0.4 mg PO Q5M PRN 10/05/15 [History] Warfarin [Coumadin] 2.5 mg PO .MONTHUR 10/05/15 [History] Warfarin [Coumadin] 5 mg PO .TUESWEDFRISATSUN 10/05/15 [History] atorvaSTATin [Lipitor] 40 mg PO BEDTIME 10/05/15 [History] Oxybutynin 5 mg PO QAM 05/13/19 [History] Clopidogrel [Plavix] 75 mg PO DAILY 05/25/19 [History] Digoxin [Lanoxin] 250 mcg PO DAILY 05/25/19 [History] Past Medical History Cardiovascular History: Reports: High Cholesterol, Hypertension, [place], Stents Respiratory History: Reports: None Gastrointestinal History: Reports: None Other Gastrointestinal History: heartburn if overeating Genitourinary History: Reports: None Other Genitourinary History: states has had prostate surgery for cancer in 1998 Neurological History: Reports: None Psychiatric History: Reports: None Endocrine/Metabolic History: Reports: None Hematologic History: Reports: None Immunologic History: Reports: None Oncologic (Cancer) History: Reports: Prostate Dermatologic History: Reports: None - Infectious Disease History Infectious Disease History: Reports: Chicken Pox - Past Surgical History Head Surgeries/Procedures: Reports: None HEENT Surgical History: Reports: Tonsillectomy Musculoskeletal Surgical History: Reports: ORIF Other Musculoskeletal Surgeries/Procedures:: R hip Social & Family History - Caffeine Use Caffeine Use: Reports: Coffee, Soda ED ROS GENERAL - Review of Systems Review Of Systems: See Below ED EXAM, GENERAL - Physical Exam Exam: See Below Course - Vital Signs Last Recorded V/S: Last Vital Signs Temp 97.2 F 05/25/19 10:06 Pulse 81 05/25/19 10:06 Resp 16 05/25/19 10:06 BP 96/62 05/25/19 10:06 Pulse Ox 98 05/25/19 10:06 - Orders/Labs/Meds Orders: Active Orders 24 hr Category Date Time Status Patient Status [ADT] Stat ADT 05/25/19 09:13 Active Cardiac Monitoring [RC] . DIRECTED Care 05/25/19 08:21 Active EKG Documentation Completion [RC] STAT Care 05/25/19 08:21 Active CULTURE BLOOD [BC] Stat Lab 05/25/19 09:00 Received CULTURE BLOOD [BC] Stat Lab 05/25/19 09:10 Received Nitroglycerin [Nitrostat] Med 05/25/19 08:21 Active 0.4 mg SL Q5M PRN Sodium Chloride 0.9% [Normal Saline] 1,000 ml Med 05/25/19 09:15 Active IV ASDIRECTED Sodium Chloride 0.9% [Normal Saline] 250 ml Med 05/25/19 08:45 Active IV ASDIRECTED Sodium Chloride 0.9% [Normal Saline] 250 ml Med 05/25/19 09:00 Active IV ASDIRECTED Sodium Chloride 0.9% [Saline Flush] Med 05/25/19 08:21 Active 10 ml FLUSH ASDIRECTED PRN Sodium Chloride 0.9% [Saline Flush] Med 05/25/19 08:21 Active 2.5 ml FLUSH ASDIRECTED PRN Blood Culture x2 Reflex Set [OM.PC] Stat Oth 05/25/19 08:48 Ordered Saline Lock Insert [OM.PC] Stat Oth 05/25/19 08:21 Ordered Medication Orders Sodium Chloride (Normal Saline) 250 mls @ 999 mls/hr IV ASDIRECTED [facility] Last Admin: 05/25/19 08:39 Dose: 999 mls/hr Sodium Chloride (Normal Saline) 250 mls @ 999 mls/hr IV ASDIRECTED ADAM Last Admin: 05/25/19 08:54 Dose: 999 mls/hr Sodium Chloride (Normal Saline) 1,000 mls @ 125 mls/hr IV ASDIRECTED ADAM Last Infusion: 05/25/19 09:19 Dose: 100 mls/hr Admin: 05/25/19 09:14 Dose: 125 mls/hr Nitroglycerin (Nitrostat) 0.4 mg SL Q5M PRN PRN Reason: Chest Pain Sodium Chloride (Saline Flush) 10 ml FLUSH ASDIRECTED PRN PRN Reason: Keep Vein Open Sodium Chloride (Saline Flush) 2.5 ml FLUSH ASDIRECTED PRN PRN Reason: Keep Vein Open Labs: Laboratory Tests 05/25/19 05/25/19 05/25/19 Range/Units 08:22 08:22 08:22 WBC 13.26 H (4.0-11.0) K/uL RBC 4.76 (4.50-5.90) M/uL Hgb 14.0 (13.0-17.0) g/dL Hct 42.6 (38.0-50.0) % MCV 89.5 (80.0-98.0) fL MCH 29.4 (27.0-32.0) pg MCHC 32.9 (31.0-37.0) g/dL RDW Std Deviation 50.1 (28.0-62.0) fl RDW Coeff of Rosa Isela 15 (11.0-15.0) % Plt Count 341 (150-400) K/uL MPV 10.40 (7.40-12.00) fL Neut % (Auto) 74.0 (48.0-80.0) % Lymph % (Auto) 12.3 L (16.0-40.0) % Hendry % (Auto) 11.3 (0.0-15.0) % Eos % (Auto) 2.1 (0.0-7.0) % Baso % (Auto) 0.3 (0.0-1.5) % Neut # (Auto) 9.8 H (1.4-5.7) K/uL Lymph # (Auto) 1.6 (0.6-2.4) K/uL Hendry # (Auto) 1.5 H (0.0-0.8) K/uL Eos # (Auto) 0.3 (0.0-0.7) K/uL Baso # (Auto) 0.0 (0.0-0.1) K/uL Nucleated RBC % 0.0 /100WBC Nucleated RBCs # 0 K/uL INR 2.05 Sodium 142 (136-148) mmol/L Potassium 4.4 (3.5-5.1) mmol/L Chloride 104 (98-107) mmol/L Carbon Dioxide 29.8 (21.0-32.0) mmol/L BUN 13 (7.0-18.0) mg/dL Creatinine 1.0 (0.8-1.3) mg/dL Est Cr Clr Drug Dosing 73.24 mL/min Estimated GFR (MDRD) > 60.0 ml/min Glucose 127 H (74-106) mg/dL Calcium 9.0 (8.5-10.1) mg/dL Total Bilirubin 1.7 H (0.2-1.0) mg/dL AST 54 H (15-37) IU/L ALT 110 H (14-63) IU/L Alkaline Phosphatase 375 H (46-116) U/L Troponin I < 0.050 (0.000-0.056) ng/mL Total Protein 8.3 H (6.4-8.2) g/dL Albumin 2.6 L (3.4-5.0) g/dL Globulin 5.7 H (2.6-4.0) g/dL Albumin/Globulin Ratio 0.5 L (0.9-1.6) Meds: Medications Generic Name Dose Route Start Last Admin Trade Name Freq PRN Reason Stop Dose Admin Sodium Chloride 250 mls @ 999 mls/hr 05/25/19 08:45 05/25/19 08:39 Normal Saline IV 999 mls/hr ASDIRECTED ADAM Administration Sodium Chloride 250 mls @ 999 mls/hr 05/25/19 09:00 05/25/19 08:54 Normal Saline IV 999 mls/hr ASDIRECTED ADAM Administration Sodium Chloride 1,000 mls @ 125 mls/hr 05/25/19 09:15 05/25/19 09:19 Normal Saline IV 100 mls/hr ASDIRECTED ADAM Infusion Nitroglycerin 0.4 mg 05/25/19 08:21 Nitrostat SL Q5M PRN Chest Pain Sodium Chloride 10 ml 05/25/19 08:21 Saline Flush FLUSH ASDIRECTED PRN Keep Vein Open Sodium Chloride 2.5 ml 05/25/19 08:21 Saline Flush FLUSH ASDIRECTED PRN Keep Vein Open Discontinued Medications Generic Name Dose Route Start Last Admin Trade Name Freq PRN Reason Stop Dose Admin Sodium Chloride 250 mls @ 999 mls/hr 05/25/19 08:26 05/25/19 08:38 Normal Saline IV 05/25/19 08:41 Not Given .Bolus ONE Levofloxacin/Dextrose 500 mg/ 100 mls @ 100 mls/hr 05/25/19 09:20 05/25/19 09 :29 Premix IV 05/25/19 10:19 100 mls/hr ONETIME ONE Administration Departure - Departure Time of Disposition: 09:45 Disposition: Refer to Observation Condition: Good Clinical Impression: Chest pain - My Orders Last 24 Hours: My Active Orders 05/25/19 08:21 Cardiac Monitoring [RC] . DIRECTED EKG Documentation Completion [RC] STAT Nitroglycerin [Nitrostat] 0.4 mg SL Q5M PRN Sodium Chloride 0.9% [Saline Flush] 10 ml FLUSH ASDIRECTED PRN Sodium Chloride 0.9% [Saline Flush] 2.5 ml FLUSH ASDIRECTED PRN Saline Lock Insert [OM.PC] Stat 05/25/19 08:45 Sodium Chloride 0.9% [Normal Saline] 250 ml IV ASDIRECTED 05/25/19 08:48 Blood Culture x2 Reflex Set [OM.PC] Stat 05/25/19 09:00 CULTURE BLOOD [BC] Stat Sodium Chloride 0.9% [Normal Saline] 250 ml IV ASDIRECTED 05/25/19 09:10 CULTURE BLOOD [BC] Stat 05/25/19 09:13 Patient Status [ADT] Stat 05/25/19 09:15 Sodium Chloride 0.9% [Normal Saline] 1,000 ml IV ASDIRECTED - Assessment/Plan Last 24 Hours: My Active Orders 05/25/19 08:21 Cardiac Monitoring [RC] . DIRECTED EKG Documentation Completion [RC] STAT Nitroglycerin [Nitrostat] 0.4 mg SL Q5M PRN Sodium Chloride 0.9% [Saline Flush] 10 ml FLUSH ASDIRECTED PRN Sodium Chloride 0.9% [Saline Flush] 2.5 ml FLUSH ASDIRECTED PRN Saline Lock Insert [OM.PC] Stat 05/25/19 08:45 Sodium Chloride 0.9% [Normal Saline] 250 ml IV ASDIRECTED 05/25/19 08:48 Blood Culture x2 Reflex Set [OM.PC] Stat 05/25/19 09:00 CULTURE BLOOD [BC] Stat Sodium Chloride 0.9% [Normal Saline] 250 ml IV ASDIRECTED 05/25/19 09:10 CULTURE BLOOD [BC] Stat 05/25/19 09:13 Patient Status [ADT] Stat 05/25/19 09:15 Sodium Chloride 0.9% [Normal Saline] 1,000 ml IV ASDIRECTED
[2019-05-25] MEDS ORDERED: Sodium Chloride 0.9% 250 ML IV SCH ×2 (08:45→09:00)
--- NOTE | 2019-05-25 08:53 | CR ---
INDICATION: Chest pain. TECHNIQUE: Portable chest. COMPARISON: 05/13/2019. FINDINGS: Heart and mediastinum: No change. There is crowding of the central pulmonary vascular markings. Lungs and pleura: No pneumothorax some stable linear opacities or atelectasis at the right lung base. IMPRESSION: Stable chest. Dictated by Kamari Stratton MD @ May 25 2019 8:45AM Signed by Dr. Kamari Stratton @ May 25 2019 8:51AM
[2019-05-25 08:57] LABS: BLOOD UREA NITROGEN,BUN 13 mg/dL (7.0-18.0); CARBON DIOXIDE,CO2 29.8 mmol/L (21.0-32.0); CHLORIDE,CL 104 mmol/L (98-107); GLUCOSE RANDOM 127 mg/dL (74-106); POTASSIUM,K 4.4 mmol/L (3.5-5.1); SODIUM,NA 142 mmol/L (136-148)
[2019-05-25] MEDS: Sodium Chloride 0.9% 1,000 ML IV SCH ×2 (09:14→16:37)
[2019-05-25] MEDS ORDERED: Levofloxacin/Dextrose 5%-Water 500 MG in Premix Bag 1 BAG IV ONE (09:20)
--- NOTE | 2019-05-25 13:07 | PCM.HP.2 ---
H&P History of Present Illness - General Date of Service: 05/25/19 Admit Problem/Dx: Admission Diagnosis/Problem Admission Diagnosis/Problem Chest pain - History of Present Illness Initial Comments - Free Text/Narative: 74 yo male with pmh of CAD, Atrial fibrillation on coumadin who woke up this morning with complaints of chest pain. He describes the pain as a soreness across his chest. He reports a cough but denies and fevers or chills. He reported that he took Vitamin K this week for an INR of 8. Patient reports his blood pressure is normally in the 80s to 90s systolic chest Pain Score (Numeric/FACES): 2 - Related Data Allergies/Adverse Reactions: Allergies Allergy/AdvReac Type Severity Reaction Status Date / Time latex Allergy Itching Verified 05/25/19 10:07 oxycodone HCl Allergy Stomach Verified 05/25/19 10:07 [From OxyContin] Upset Home Medications: Home Meds Carvedilol [Coreg] 12.5 mg PO BID 10/05/15 [History] Nitroglycerin [Nitrostat] 0.4 mg PO Q5M PRN 10/05/15 [History] Warfarin [Coumadin] 2.5 mg PO .MONTHUR 10/05/15 [History] Warfarin [Coumadin] 5 mg PO .TUESWEDFRISATSUN 10/05/15 [History] atorvaSTATin [Lipitor] 40 mg PO BEDTIME 10/05/15 [History] Oxybutynin 5 mg PO QAM 05/13/19 [History] Clopidogrel [Plavix] 75 mg PO DAILY 05/25/19 [History] Digoxin [Lanoxin] 250 mcg PO DAILY 05/25/19 [History] Past Medical History HEENT History: Reports: None Cardiovascular History: Reports: High Cholesterol, Hypertension, [place], Stents Respiratory History: Reports: None Gastrointestinal History: Reports: None Other Gastrointestinal History: heartburn if overeating Genitourinary History: Reports: None Other Genitourinary History: states has had prostate surgery for cancer in 1998 Musculoskeletal History: Reports: Arthritis Neurological History: Reports: None Psychiatric History: Reports: None Endocrine/Metabolic History: Reports: None Hematologic History: Reports: None Immunologic History: Reports: None Oncologic (Cancer) History: Reports: Prostate Dermatologic History: Reports: None - Infectious Disease History Infectious Disease History: Reports: Chicken Pox - Past Surgical History Head Surgeries/Procedures: Reports: None HEENT Surgical History: Reports: Tonsillectomy Musculoskeletal Surgical History: Reports: ORIF Other Musculoskeletal Surgeries/Procedures:: R hip Social & Family History - Family History Family Medical History: Noncontributory - Tobacco Use Smoking Status *Q: Former Smoker Used Tobacco, but Quit: Yes Month/Year Tobacco Last Used: 1998 Second Hand Smoke Exposure: No - Caffeine Use Caffeine Use: Reports: Coffee, Soda - Alcohol Use Date of Last Drink: 05/02/19 - Recreational Drug Use Recreational Drug Use: No H&P Review of Systems - Review of Systems: Review Of Systems: ROS reveals no pertinent complaints other than HPI. Exam - Exam Exam: See Below - Vital Signs Vital Signs: Last Vital Signs Temp 36.6 C 05/25/19 12:00 Pulse 101 H 05/25/19 12:00 Resp 16 05/25/19 12:00 BP 92/63 05/25/19 12:00 Pulse Ox 96 05/25/19 12:00 Weight: 108.318 kg - Exam General: Alert, Oriented HEENT: Conjunctiva Clear Neck: Supple Lungs: Clear to Auscultation, Normal Respiratory Effort GI/Abdominal Exam: Soft, Non-Tender Extremities: Non-Tender, No Pedal Edema Skin: Warm, Dry, Intact - Patient Data Lab Results Last 24 hrs: Laboratory Results - last 24 hr 05/25/19 05/25/19 05/25/19 Range/Units 08:22 08:22 08:22 WBC 13.26 H (4.0-11.0) K/uL RBC 4.76 (4.50-5.90) M/uL Hgb 14.0 (13.0-17.0) g/dL Hct 42.6 (38.0-50.0) % MCV 89.5 (80.0-98.0) fL MCH 29.4 (27.0-32.0) pg MCHC 32.9 (31.0-37.0) g/dL RDW Std Deviation 50.1 (28.0-62.0) fl RDW Coeff of Rosa Isela 15 (11.0-15.0) % Plt Count 341 (150-400) K/uL MPV 10.40 (7.40-12.00) fL Neut % (Auto) 74.0 (48.0-80.0) % Lymph % (Auto) 12.3 L (16.0-40.0) % Baxter % (Auto) 11.3 (0.0-15.0) % Eos % (Auto) 2.1 (0.0-7.0) % Baso % (Auto) 0.3 (0.0-1.5) % Neut # (Auto) 9.8 H (1.4-5.7) K/uL Lymph # (Auto) 1.6 (0.6-2.4) K/uL Baxter # (Auto) 1.5 H (0.0-0.8) K/uL Eos # (Auto) 0.3 (0.0-0.7) K/uL Baso # (Auto) 0.0 (0.0-0.1) K/uL Nucleated RBC % 0.0 /100WBC Nucleated RBCs # 0 K/uL INR 2.05 Sodium 142 (136-148) mmol/L Potassium 4.4 (3.5-5.1) mmol/L Chloride 104 (98-107) mmol/L Carbon Dioxide 29.8 (21.0-32.0) mmol/L BUN 13 (7.0-18.0) mg/dL Creatinine 1.0 (0.8-1.3) mg/dL Est Cr Clr Drug Dosing 73.24 mL/min Estimated GFR (MDRD) > 60.0 ml/min Glucose 127 H (74-106) mg/dL Calcium 9.0 (8.5-10.1) mg/dL Total Bilirubin 1.7 H (0.2-1.0) mg/dL AST 54 H (15-37) IU/L ALT 110 H (14-63) IU/L Alkaline Phosphatase 375 H (46-116) U/L Troponin I < 0.050 (0.000-0.056) ng/mL Total Protein 8.3 H (6.4-8.2) g/dL Albumin 2.6 L (3.4-5.0) g/dL Globulin 5.7 H (2.6-4.0) g/dL Albumin/Globulin Ratio 0.5 L (0.9-1.6) Result Diagrams: 05/25/19 08:22 05/25/19 08:22 Problem List Initiated/Reviewed/Updated: Yes Orders Last 24hrs: Active Orders 24 hr Category Date Time Status Patient Status [ADT] Stat ADT 05/25/19 09:13 Active Cardiac Monitoring [RC] . DIRECTED Care 05/25/19 08:21 Active EKG Documentation Completion [RC] STAT Care 05/25/19 08:21 Active Telemetry Monitoring [Cardiac Monitoring] [RC] . Care 05/25/19 09:13 Active DIRECTED VTE/DVT Education [RC] PER UNIT ROUTINE Care 05/25/19 13:02 Ordered Vital Signs [RC] Q4H Care 05/25/19 13:02 Ordered Heart Healthy Diet [DIET] Diet 05/25/19 Dinner Active BASIC METABOLIC PANEL,BMP [CHEM] AM Lab 05/26/19 05:11 Ordered CBC WITH AUTO DIFF [HEME] AM Lab 05/26/19 05:11 Ordered CULTURE BLOOD [BC] Stat Lab 05/25/19 09:00 Received CULTURE BLOOD [BC] Stat Lab 05/25/19 09:10 Received TROPONIN I [CHEM] Q6H Lab 05/25/19 14:00 Ordered TROPONIN I [CHEM] Q6H Lab 05/25/19 20:00 Ordered Carvedilol [Coreg] Med 05/25/19 21:00 Ordered 12.5 mg PO BID Clopidogrel [Plavix] Med 05/25/19 13:00 Ordered 75 mg PO DAILY Digoxin [Lanoxin] Med 05/26/19 09:00 Ordered 250 mcg PO DAILY Nitroglycerin [Nitrostat] Med 05/25/19 08:21 Active 0.4 mg SL Q5M PRN Sodium Chloride 0.9% [Normal Saline] 1,000 ml Med 05/25/19 09:15 Active IV ASDIRECTED Sodium Chloride 0.9% [Normal Saline] 250 ml Med 05/25/19 08:45 Active IV ASDIRECTED Sodium Chloride 0.9% [Normal Saline] 250 ml Med 05/25/19 09:00 Active IV ASDIRECTED Sodium Chloride 0.9% [Saline Flush] Med 05/25/19 08:21 Active 10 ml FLUSH ASDIRECTED PRN Sodium Chloride 0.9% [Saline Flush] Med 05/25/19 08:21 Active 2.5 ml FLUSH ASDIRECTED PRN Warfarin [Coumadin] Med 05/26/19 09:00 Ordered 2.5 mg PO DAILY atorvaSTATin [Lipitor] Med 05/25/19 21:00 Ordered 40 mg PO BEDTIME Blood Culture x2 Reflex Set [OM.PC] Stat Oth 05/25/19 08:48 Ordered Saline Lock Insert [OM.PC] Stat Oth 05/25/19 08:21 Ordered Resuscitation Status Routine Resus Stat 05/25/19 13:02 Ordered Medication Orders Atorvastatin Calcium (Lipitor) 40 mg PO BEDTIME [facility] Carvedilol (Coreg) 12.5 mg PO BID [facility] Clopidogrel Bisulfate (Plavix) 75 mg PO DAILY [facility] Digoxin (Lanoxin) 250 mcg PO DAILY [facility] Sodium Chloride (Normal Saline) 250 mls @ 999 mls/hr IV ASDIRECTED [facility] Last Admin: 05/25/19 08:39 Dose: 999 mls/hr Sodium Chloride (Normal Saline) 250 mls @ 999 mls/hr IV ASDIRECTED [facility] Last Admin: 05/25/19 08:54 Dose: 999 mls/hr Sodium Chloride (Normal Saline) 1,000 mls @ 125 mls/hr IV ASDIRECTED [facility] Last Infusion: 05/25/19 09:19 Dose: 100 mls/hr Admin: 05/25/19 09:14 Dose: 125 mls/hr Nitroglycerin (Nitrostat) 0.4 mg SL Q5M PRN PRN Reason: Chest Pain Sodium Chloride (Saline Flush) 10 ml FLUSH ASDIRECTED PRN PRN Reason: Keep Vein Open Sodium Chloride (Saline Flush) 2.5 ml FLUSH ASDIRECTED PRN PRN Reason: Keep Vein Open Warfarin Sodium (Coumadin) 2.5 mg PO DAILY [facility] Assessment/Plan Comment:: 74 yo male who presented with chest pain. He is now chest pain free. Is being observed to rule out ACS with serial cardiac enzymes. He received levaquin for concerns of pneumonia due to elevated WBC, CXR and cough.
[2019-05-25] MEDS: Clopidogrel 75 MG Tab PO SCH (14:14)
[2019-05-25] MEDS ORDERED: atorvaSTATin 40 MG Tab PO SCH (21:00)
[2019-05-25] MEDS: Carvedilol 12.5 MG Tab PO SCH (21:07)
[2019-05-25] MEDS: Warfarin 2.5 MG Tab PO SCH (21:23)
[2019-05-25] MEDS ORDERED: Diltiazem 25 MG/5 ML SDV IVPUSH ONE (21:56)
[2019-05-26] MEDS: Sodium Chloride 0.9% 1,000 ML IV SCH (02:38)
[2019-05-26 07:05] LABS: BLOOD UREA NITROGEN,BUN 10 mg/dL (7.0-18.0); CARBON DIOXIDE,CO2 28.8 mmol/L (21.0-32.0); CHLORIDE,CL 109 mmol/L (98-107); GLUCOSE RANDOM 106 mg/dL (74-106); POTASSIUM,K 4.7 mmol/L (3.5-5.1); SODIUM,NA 145 mmol/L (136-148)
[2019-05-26 07:44] VITALS: BP 112/80; PULSE 117
[2019-05-26] MEDS: Carvedilol 12.5 MG Tab PO SCH (08:20)
[2019-05-26] MEDS: Clopidogrel 75 MG Tab PO SCH (08:21)
[2019-05-26] MEDS: Warfarin 2.5 MG Tab PO SCH (09:00)
[2019-05-26] MEDS ORDERED: Warfarin 2.5 MG Tab PO SCH (09:00)
[2019-05-26] MEDS ORDERED: Digoxin 250 MCG Tab PO SCH (09:00)
--- NOTE | 2019-05-26 09:10 | PCM.DCSUM1 ---
Discharge Summary - Discharge Data Discharge Date: 05/26/19 Discharge Disposition: Home, Self-Care 01 Condition: Good - Referral to Home Health Primary Care Physician: PCP Unobtainable - Patient Summary/Data Hospital Course: 74 yo male with pmh of CAD, Atrial fibrillation on coumadin who was admitted for pneumonia. HE presented with pleuritic chest pain and cough. His WBC was 13,260 and his CXR showed no acute disease. He was treated with Levaquin. He ruled out for acute coronary syndrome with serial negative cardiac enzymes and EKG. He did have episodes of tachycardia with exertion ranging in the 120s to 140s. Due to low blood pressure his rate controlling medications were not increased. Today he is requesting discharge. He was discharged home to have follow up with [facility]. - Patient Instructions Diet: Usual Diet as Tolerated Notify Provider of: Fever, Swelling and Redness, Nausea and/or Vomiting - Discharge Plan Prescriptions/Med Rec: Levofloxacin [Levaquin] 500 mg PO DAILY #5 tablet Home Medications: Home Meds Carvedilol [Coreg] 12.5 mg PO BID 10/05/15 [History] Nitroglycerin [Nitrostat] 0.4 mg PO Q5M PRN 10/05/15 [History] Warfarin [Coumadin] 2.5 mg PO .MONTHUR 10/05/15 [History] Warfarin [Coumadin] 5 mg PO .TUESWEDFRISATSUN 10/05/15 [History] atorvaSTATin [Lipitor] 40 mg PO BEDTIME 10/05/15 [History] Oxybutynin 5 mg PO TID PRN 05/13/19 [History] Clopidogrel [Plavix] 75 mg PO DAILY 05/25/19 [History] Digoxin [Lanoxin] 250 mcg PO DAILY 05/25/19 [History] Levofloxacin [Levaquin] 500 mg PO DAILY #5 tablet 05/26/19 [Rx] Forms: ED Department Discharge Referrals: PCP,Unobtain [Primary Care Provider] - - Discharge Summary/Plan Comment DC Time >30 min.: No - Patient Data Vitals - Most Recent: Last Vital Signs Temp 35.9 C 05/26/19 07:43 Pulse 117 H 05/26/19 08:20 Resp 20 05/26/19 07:43 BP 112/80 05/26/19 08:20 Pulse Ox 95 05/26/19 07:43 Weight - Most Recent: 108.318 kg I&O - Last 24 hours: Intake & Output 05/25/19 05/26/19 05/26/19 22:59 06:59 14:59 Intake Total 1937 1766 Output Total 200 1915 Balance 1737 -149 Lab Results - Last 24 hrs: Laboratory Results - last 24 hr 05/25/19 05/25/19 05/26/19 Range/Units 14:00 20:25 06:35 WBC 10.27 (4.0-11.0) K/uL RBC 4.24 L (4.50-5.90) M/uL Hgb 12.1 L (13.0-17.0) g/dL Hct 38.0 (38.0-50.0) % MCV 89.6 (80.0-98.0) fL MCH 28.5 (27.0-32.0) pg MCHC 31.8 (31.0-37.0) g/dL RDW Std Deviation 49.9 (28.0-62.0) fl RDW Coeff of Rosa Isela 15 (11.0-15.0) % Plt Count 284 (150-400) K/uL MPV 9.90 (7.40-12.00) fL Neut % (Auto) 70.7 (48.0-80.0) % Lymph % (Auto) 16.0 (16.0-40.0) % [place] % (Auto) 12.0 (0.0-15.0) % Eos % (Auto) 1.1 (0.0-7.0) % Baso % (Auto) 0.2 (0.0-1.5) % Neut # (Auto) 7.3 H (1.4-5.7) K/uL Lymph # (Auto) 1.6 (0.6-2.4) K/uL [place] # (Auto) 1.2 H (0.0-0.8) K/uL Eos # (Auto) 0.1 (0.0-0.7) K/uL Baso # (Auto) 0.0 (0.0-0.1) K/uL Nucleated RBC % 0.0 /100WBC Nucleated RBCs # 0 K/uL Sodium (136-148) mmol/L Potassium (3.5-5.1) mmol/L Chloride (98-107) mmol/L Carbon Dioxide (21.0-32.0) mmol/L BUN (7.0-18.0) mg/dL Creatinine (0.8-1.3) mg/dL Est Cr Clr Drug Dosing mL/min Estimated GFR (MDRD) ml/min Glucose (74-106) mg/dL Calcium (8.5-10.1) mg/dL Troponin I < 0.050 < 0.050 (0.000-0.056) ng/mL 05/26/19 Range/Units 06:35 WBC (4.0-11.0) K/uL RBC (4.50-5.90) M/uL Hgb (13.0-17.0) g/dL Hct (38.0-50.0) % MCV (80.0-98.0) fL MCH (27.0-32.0) pg MCHC (31.0-37.0) g/dL RDW Std Deviation (28.0-62.0) fl RDW Coeff of Rosa Isela (11.0-15.0) % Plt Count (150-400) K/uL MPV (7.40-12.00) fL Neut % (Auto) (48.0-80.0) % Lymph % (Auto) (16.0-40.0) % [place] % (Auto) (0.0-15.0) % Eos % (Auto) (0.0-7.0) % Baso % (Auto) (0.0-1.5) % Neut # (Auto) (1.4-5.7) K/uL Lymph # (Auto) (0.6-2.4) K/uL [place] # (Auto) (0.0-0.8) K/uL Eos # (Auto) (0.0-0.7) K/uL Baso # (Auto) (0.0-0.1) K/uL Nucleated RBC % /100WBC Nucleated RBCs # K/uL Sodium 145 (136-148) mmol/L Potassium 4.7 (3.5-5.1) mmol/L Chloride 109 H (98-107) mmol/L Carbon Dioxide 28.8 (21.0-32.0) mmol/L BUN 10 (7.0-18.0) mg/dL Creatinine 0.9 (0.8-1.3) mg/dL Est Cr Clr Drug Dosing 81.38 mL/min Estimated GFR (MDRD) > 60.0 ml/min Glucose 106 (74-106) mg/dL Calcium 8.4 L (8.5-10.1) mg/dL Troponin I (0.000-0.056) ng/mL Med Orders - Current: Current Medications Atorvastatin Calcium (Lipitor) 40 mg PO BEDTIME [facility] Last Admin: 05/25/19 20:30 Dose: 40 mg Carvedilol (Coreg) 12.5 mg PO BID [facility] Last Admin: 05/26/19 08:20 Dose: 12.5 mg Clopidogrel Bisulfate (Plavix) 75 mg PO DAILY [facility] Last Admin: 05/26/19 08:21 Dose: 75 mg Digoxin (Lanoxin) 250 mcg PO DAILY [facility] Last Admin: 05/26/19 08:20 Dose: 250 mcg Sodium Chloride (Normal Saline) 250 mls @ 999 mls/hr IV ASDIRECTED [facility] Last Admin: 05/25/19 08:39 Dose: 999 mls/hr Sodium Chloride (Normal Saline) 250 mls @ 999 mls/hr IV ASDIRECTED [facility] Last Admin: 05/25/19 08:54 Dose: 999 mls/hr Sodium Chloride (Normal Saline) 1,000 mls @ 125 mls/hr IV ASDIRECTED [facility] Last Admin: 05/26/19 02:38 Dose: 100 mls/hr Nitroglycerin (Nitrostat) 0.4 mg SL Q5M PRN PRN Reason: Chest Pain Sodium Chloride (Saline Flush) 10 ml FLUSH ASDIRECTED PRN PRN Reason: Keep Vein Open Sodium Chloride (Saline Flush) 2.5 ml FLUSH ASDIRECTED PRN PRN Reason: Keep Vein Open Warfarin Sodium (Coumadin) 2.5 mg PO DAILY [facility] Last Admin: 05/26/19 09:00 Dose: Not Given Discontinued Medications Diltiazem HCl (Diltiazem) 10 mg IVPUSH ONETIME ONE Stop: 05/25/19 21:57 Last Admin: 05/25/19 22:22 Dose: 10 mg Sodium Chloride (Normal Saline) 250 mls @ 999 mls/hr IV .Bolus ONE Stop: 05/25/19 08:41 Last Admin: 05/25/19 08:38 Dose: Not Given Levofloxacin/Dextrose 500 mg/ (Premix) 100 mls @ 100 mls/hr IV ONETIME ONE Stop: 05/25/19 10:19 Last Admin: 05/25/19 09:29 Dose: 100 mls/hr Warfarin Sodium (Coumadin Ask) 1 each PO DAILY@1400 ADAM Last Admin: 05/25/19 18:32 Dose: Not Given
== END 2019-05-26 10:25 | disposition home or self-care (01) ==
LOC: MW.ED 08:19 → MW.MS 10:03
PROVIDERS: ADMIT Internal Medicine; ATTEND Internal Medicine
DX: J18.9 Pneumonia, unspecified organism (principal); I25.10 Atherosclerotic heart disease of native coronary artery without angina pectoris; I48.91 Unspecified atrial fibrillation; I10 Essential (primary) hypertension; E78.00 Pure hypercholesterolemia, unspecified; M19.90 Unspecified osteoarthritis, unspecified site; Z79.899 Other long term (current) drug therapy; Z79.01 Long term (current) use of anticoagulants; Z91.040 Latex allergy status; Z88.5 Allergy status to narcotic agent; Z87.891 Personal history of nicotine dependence
CPT/HCPCS: 36415; 71045; 80048; 80053; 84484; 85025; 85610; 87040; 93005; 96365; 99285; A9270; J1956; J3490; J7040; J7050; 96361; 96375; G0378

== ENCOUNTER 2019-06-26 00:56 | Emergency (ER) | payer MEDICARE, OTHER ==
[2019-06-26] MEDS: Sodium Chloride 0.9% 1,000 ML IV SCH (01:09)
[2019-06-26] MEDS: Morphine 4 MG/ML Syringe IVPUSH ONE (01:10)
[2019-06-26] MEDS: Ondansetron 4 MG/2 ML SDV IVPUSH ONE ×2 (01:10→01:13)
[2019-06-26] MEDS: Ondansetron 4 MG/2 ML SDV ONE (01:12)
[2019-06-26] MEDS: HYDROmorphone 2 MG/ML Syringe IVPUSH ONE (01:28)
[2019-06-26] MEDS: HYDROmorphone 2 MG/ML Syringe ONE (01:30)
[2019-06-26 01:38] LABS: BLOOD UREA NITROGEN,BUN 15 mg/dL (7.0-18.0); CARBON DIOXIDE,CO2 30.1 mmol/L (21.0-32.0); CHLORIDE,CL 102 mmol/L (98-107); GLUCOSE RANDOM 122 mg/dL (74-106); LIPASE 133 U/L (73-393); POTASSIUM,K 4.4 mmol/L (3.5-5.1); SODIUM,NA 139 mmol/L (136-148)
--- NOTE | 2019-06-26 01:48 | EDM.PDOC ---
ED HPI GENERAL MEDICAL PROBLEM - General Chief Complaint: Abdominal Pain Stated Complaint: ABDOMINAL PAIN Time Seen by Provider: 06/26/19 01:47 Source of Information: Reports: Patient - History of Present Illness INITIAL COMMENTS - FREE TEXT/NARRATIVE: HISTORY AND PHYSICAL: History of present illness: [Patient presents with abdominal pain 8 out of 10 on arrival, epigastric pain nonradiating Patient has a history of intermittent abdominal pain over the last month he's had a couple of visits here as well as some follow-up in [place] with no definitive diagnosis No fever nausea vomiting chills or sweats no chest pain shortness breath headache dizziness or palpitation no bowel or urine symptoms After prolonged observation here in the ER he did get some tachycardia up to 123 blood pressure dropped down to 80/50 we did provided to 50 mL bolus and began Zosyn I've spoken with Dr. Kd Pena in the ER at [facility] his excepting care /transfer The patient does have a physician daughter and son-in-law in [place] and they( Roque and his ) are refusing treatment here and were actually wanting to go by private vehicle to [place] , however , the drop in blood pressure and tachycardia concerning for sepsis . hence, I feel with the patient transferred by air or he will likely have a poor outcome trying to go by private vehicle, hence the transfer is made. Patient had refused transfer to [place] or [place] and is adamant about traveling to [place] as his daughter and son-in-law live there. ] Review of systems: As per history of present illness and below otherwise all systems reviewed and negative. Past medical history: As per history of present illness and as reviewed below otherwise noncontributory. Surgical history: As per history of present illness and as reviewed below otherwise noncontributory. Social history: No reported history of drug or alcohol abuse. Family history: As per history of present illness and as reviewed below otherwise noncontributory. Physical exam: HEENT: Atraumatic, normocephalic, pupils reactive, negative for conjunctival pallor or scleral icterus, mucous membranes moist, throat clear, neck supple, nontender, trachea midline. Lungs: Clear to auscultation, breath sounds equal bilaterally, chest nontender. Heart: S1S2, regular, negative for clicks, rubs, or JVD. Abdomen: Soft, nondistended, tender on deep palpation right upper quadrant. Negative for masses or hepatosplenomegaly. Negative for costovertebral tenderness. Pelvis: Stable nontender. Left hernia noted Genitourinary: Deferred. Rectal: Deferred. Extremities: Atraumatic, negative for cords or calf pain. Neurovascular unremarkable. Neuro: Awake, alert, oriented. Cranial nerves II through XII unremarkable. Cerebellum unremarkable. Motor and sensory unremarkable throughout. Exam nonfocal. Diagnostics: [CBC CMP UA troponin lipase lactic blood cultures [address] abdomen pelvis with and without contrast ] Therapeutics: [ saline Zosyn ] fiend 2 mg IV Dilaudid 2 mg IV Zofran Impression: Systemic inflammatory response syndrome hypotension [ acute cholecystitis Chronic history of baseline ] Definitive disposition and diagnosis as appropriate pending reevaluation and review of above. Abdominal Pain Score (Numeric/FACES): 10 - Related Data Allergies Allergy/AdvReac Type Severity Reaction Status Date / Time latex Allergy Itching Verified 06/26/19 01:01 oxycodone HCl Allergy Stomach Verified 06/26/19 01:01 [From OxyContin] Upset Home Meds: Home Meds Carvedilol [Coreg] 12.5 mg PO BID 10/05/15 [History] Nitroglycerin [Nitrostat] 0.4 mg PO Q5M PRN 10/05/15 [History] Warfarin [Coumadin] 2.5 mg PO .MONTH10/05/15 [History] Warfarin [Coumadin] 5 mg PO .TUESWEDFRISATSUN 10/05/15 [History] atorvaSTATin [Lipitor] 40 mg PO BEDTIME 10/05/15 [History] Oxybutynin 5 mg PO TID PRN 05/13/19 [History] Clopidogrel [Plavix] 75 mg PO DAILY 05/25/19 [History] Digoxin [Lanoxin] 250 mcg PO DAILY 05/25/19 [History] Past Medical History HEENT History: Reports: None Cardiovascular History: Reports: Afib, Hypertension, [place], Stents Respiratory History: Reports: None Gastrointestinal History: Reports: None Other Gastrointestinal History: heartburn if overeating Genitourinary History: Reports: None Other Genitourinary History: states has had prostate surgery for cancer in 1998 Musculoskeletal History: Reports: None Neurological History: Reports: None Psychiatric History: Reports: None Endocrine/Metabolic History: Reports: None Insulin Pump Model and Cigarette Machine Filler: None Hematologic History: Reports: None Immunologic History: Reports: None Oncologic (Cancer) History: Reports: Prostate Dermatologic History: Reports: None - Infectious Disease History Infectious Disease History: Reports: Chicken Pox, Measles - Past Surgical History Head Surgeries/Procedures: Reports: None HEENT Surgical History: Reports: Tonsillectomy Male Surgical History: Reports: Prostatectomy Musculoskeletal Surgical History: Reports: ORIF Other Musculoskeletal Surgeries/Procedures:: R hip Social & Family History - Family History Family Medical History: Noncontributory - Tobacco Use Smoking Status *Q: Never Smoker - Caffeine Use Caffeine Use: Reports: Coffee - Recreational Drug Use Recreational Drug Use: No ED ROS GENERAL - Review of Systems Review Of Systems: See Below ED EXAM, GENERAL - Physical Exam Exam: See Below Course - Vital Signs Last Recorded V/S: Last Vital Signs Temp 97.2 F 06/26/19 03:20 Pulse 113 H 06/26/19 03:20 Resp 16 06/26/19 03:20 BP 81/58 L 06/26/19 03:20 Pulse Ox 94 L 06/26/19 03:20 - Orders/Labs/Meds Orders: Active Orders 24 hr Category Date Time Status CULTURE BLOOD [BC] Stat Lab 06/26/19 03:37 Ordered CULTURE BLOOD [BC] Stat Lab 06/26/19 03:37 Ordered UA RFX ASHELY AND CULT IF INDIC [URIN] Stat Lab 06/26/19 01:02 Ordered Pantoprazole [ProTONIX IV] 80 mg Med 06/26/19 03:11 Active Sodium Chloride 0.9% [Normal Saline] 20 ml IV NOW Sodium Chloride 0.9% [Normal Saline] 1,000 ml Med 06/26/19 01:15 Active IV ASDIRECTED Blood Culture x2 Reflex Set [OM.PC] Stat Oth 06/26/19 03:37 Ordered Medication Orders Sodium Chloride (Normal Saline) 1,000 mls @ 125 mls/hr IV ASDIRECTED ADAM Last Admin: 06/26/19 01:09 Dose: 125 mls/hr Pantoprazole Sodium 80 mg/ (Sodium Chloride) 20 mls @ 10 mls/hr IV NOW STA Stop: 06/26/19 05:07 Last Admin: 06/26/19 03:13 Dose: 10 mls/hr Labs: Laboratory Tests 06/26/19 06/26/19 06/26/19 Range/Units 01:05 01:05 01:05 WBC 19.17 H (4.0-11.0) K/uL RBC 5.19 (4.50-5.90) M/uL Hgb 15.2 (13.0-17.0) g/dL Hct 44.7 (38.0-50.0) % MCV 86.1 (80.0-98.0) fL MCH 29.3 (27.0-32.0) pg MCHC 34.0 (31.0-37.0) g/dL RDW Std Deviation 48.8 (28.0-62.0) fl RDW Coeff of Rosa Isela 16 H (11.0-15.0) % Plt Count 220 (150-400) K/uL MPV 10.20 (7.40-12.00) fL Add Manual Diff YES Neutrophils % (Manual) 82 H (48.0-80.0) % Lymphocytes % (Manual) 8 L (16.0-40.0) % Monocytes % (Manual) 9 (0.0-15.0) % Basophils % (Manual) 1 (0.0-1.5) % Absolute Seg Neuts 15.7 H (1.4-5.7) Lymphocytes # (Manual) 1.5 (0.6-2.4) Monocytes # (Manual) 1.7 H (0.0-0.8) Basophils # (Manual) 0.2 H (0.0-0.1) INR 2.67 Sodium 139 (136-148) mmol/L Potassium 4.4 (3.5-5.1) mmol/L Chloride 102 (98-107) mmol/L Carbon Dioxide 30.1 (21.0-32.0) mmol/L BUN 15 (7.0-18.0) mg/dL Creatinine 1.1 (0.8-1.3) mg/dL Est Cr Clr Drug Dosing 66.58 mL/min Estimated GFR (MDRD) > 60.0 ml/min Glucose 122 H (74-106) mg/dL Calcium 9.9 (8.5-10.1) mg/dL Total Bilirubin 1.8 H (0.2-1.0) mg/dL AST 16 (15-37) IU/L ALT 26 (14-63) IU/L Alkaline Phosphatase 135 H (46-116) U/L Troponin I < 0.050 (0.000-0.056) ng/mL Total Protein 8.2 (6.4-8.2) g/dL Albumin 3.3 L (3.4-5.0) g/dL Globulin 4.9 H (2.6-4.0) g/dL Albumin/Globulin Ratio 0.7 L (0.9-1.6) Lipase 133 (73-393) U/L Meds: Medications Generic Name Dose Route Start Last Admin Trade Name Freq PRN Reason Stop Dose Admin Sodium Chloride 1,000 mls @ 125 mls/hr 06/26/19 01:15 06/26/19 01:09 Normal Saline IV 125 mls/hr ASDIRECTED ADAM Administration Pantoprazole Sodium 80 mg/ 20 mls @ 10 mls/hr 06/26/19 03:11 06/26/19 03:13 Sodium Chloride IV 06/26/19 05:07 10 mls/hr NOW STA Administration Discontinued Medications Generic Name Dose Route Start Last Admin Trade Name Freq PRN Reason Stop Dose Admin Hydromorphone HCl 2 mg 06/26/19 01:26 06/26/19 01:28 Dilaudid IVPUSH 06/26/19 01:27 2 mg ONETIME ONE Administration Hydromorphone HCl Confirm 06/26/19 01:26 06/26/19 01:30 Dilaudid Administered 06/26/19 01:27 Not Given Dose 2 mg .ROUTE .STK-MED ONE Pantoprazole Sodium 80 mg/ 100 mls @ 10 mls/hr 06/26/19 02:00 Sodium Chloride IV .Continuous ADAM Iopamidol 100 ml 06/26/19 01:55 Isovue Multipack-370 (76%) IVPUSH 06/26/19 01:56 ONETIME STA Iopamidol 100 ml 06/26/19 01:58 06/26/19 01:59 Isovue-370 (76%) IVPUSH 06/26/19 01:59 100 ml ONETIME ONE Administration Morphine Sulfate 4 mg 06/26/19 01:02 06/26/19 01:10 Morphine IVPUSH 06/26/19 01:03 4 mg ONETIME ONE Administration Ondansetron HCl 4 mg 06/26/19 01:03 06/26/19 01:10 Zofran IVPUSH 06/26/19 01:04 4 mg ONETIME ONE Administration Ondansetron HCl Confirm 06/26/19 01:06 06/26/19 01:12 Zofran Administered 06/26/19 01:07 Not Given Dose 8 mg .ROUTE .STK-MED ONE Ondansetron HCl 4 mg 06/26/19 01:11 06/26/19 01:13 Zofran IVPUSH 06/26/19 01:12 4 mg ONETIME ONE Administration Pantoprazole Sodium Confirm 06/26/19 03:00 06/26/19 03:16 Protonix Iv Administered 06/26/19 03:01 Not Given Dose 80 mg .ROUTE .STK-MED ONE Departure - Departure Time of Disposition: 03:53 Disposition: DC/Tfer to Acute Hospital 02 Condition: Serious Clinical Impression: Abdominal pain, Cholecystitis, Systemic inflammatory response syndrome - Discharge Information Referrals: Sher Goodrich MD [Primary Care Provider] - Forms: ED Department Discharge Sepsis Event Note - Evaluation Sepsis Screening Result: No Definite Risk - Focused Exam Vital Signs: Vital Signs Temp Pulse Resp BP Pulse Ox 06/26/19 03:20 97.2 F 113 H 16 81/58 L 94 L 06/26/19 02:25 123 H 16 107/65 90 L 06/26/19 01:01 96.4 F 102 H 18 151/73 H 96 Date Exam was Performed: 06/26/19 Time Exam was Performed: 03:46 - My Orders Last 24 Hours: My Active Orders 06/26/19 01:02 UA RFX ASHELY AND CULT IF INDIC [URIN] Stat 06/26/19 01:15 Sodium Chloride 0.9% [Normal Saline] 1,000 ml IV ASDIRECTED 06/26/19 03:11 Pantoprazole [ProTONIX IV] 80 mg Sodium Chloride 0.9% [Normal Saline] 20 ml IV NOW 06/26/19 03:37 CULTURE BLOOD [BC] Stat CULTURE BLOOD [BC] Stat Blood Culture x2 Reflex Set [OM.PC] Stat - Assessment/Plan Last 24 Hours: My Active Orders 06/26/19 01:02 UA RFX ASHELY AND CULT IF INDIC [URIN] Stat 06/26/19 01:15 Sodium Chloride 0.9% [Normal Saline] 1,000 ml IV ASDIRECTED 06/26/19 03:11 Pantoprazole [ProTONIX IV] 80 mg Sodium Chloride 0.9% [Normal Saline] 20 ml IV NOW 06/26/19 03:37 CULTURE BLOOD [BC] Stat CULTURE BLOOD [BC] Stat Blood Culture x2 Reflex Set [OM.PC] Stat
[2019-06-26] MEDS ORDERED: Iopamidol 755 MG/ML 500 ML Multipack Bottle IVPUSH STA (01:55)
[2019-06-26] MEDS: Iopamidol 755 Mg/ML 100 ML Bottle IVPUSH ONE (01:59)
[2019-06-26] MEDS ORDERED: Pantoprazole 80 MG in Sodium Chloride 0.9% 100 ML IV SCH (02:00)
--- NOTE | 2019-06-26 02:50 | CT ---
INDICATION: Abdominal pain, nausea and vomiting. TECHNIQUE: CT abdomen and pelvis acquired with initial noncontrast followed by 100 cc of Isovue 370 intravenous contrast. COMPARISON: None. FINDINGS: Lower chest: Trace right pleural effusion with bibasilar discoid atelectasis. Coronary atherosclerosis. Liver: Calcifications within the liver consistent with old granulomatous disease. Gallbladder and bile ducts: Gallbladder wall thickening with mild pericholecystic inflammation and mild distention of the gallbladder. Pancreas: Unremarkable. No mass or inflammation. Spleen: Splenic calcifications consistent with old granulomatous disease. Adrenal glands: Unremarkable. No nodules. Kidneys: Symmetric renal enhancement without hydronephrosis. Subcentimeter hypodensity at the lower pole of the right kidney which is too small for characterization, likely a renal cyst. GI tract: The stomach is unremarkable. No dilated loops of large or small intestine. Vasculature: Atherosclerosis without abdominal aortic aneurysm. Omentum/Peritoneum/Abdominal Wall: Left indirect inguinal hernia with sigmoid colon extending into the hernia sac without evidence of obstruction. Pelvis: Trace free fluid in the deep pelvis. Status post prostatectomy with surgical clips within the pelvis. Bones: Status post right total hip replacement. Ankylosis lower thoracic spine. IMPRESSION: 1. Gallbladder wall thickening with mild pericholecystic inflammation and distention suggesting cholecystitis. 2. Left indirect inguinal hernia with sigmoid colon in the hernia sac without evidence of obstruction. 3. Trace right pleural effusion with basilar discoid atelectasis. 4. Other incidental findings as noted above. Please note that all CT scans at this facility use dose modulation, iterative reconstruction, and/or weight-based dosing when appropriate to reduce radiation dose to as low as reasonably achievable. Dictated by Marshall Churchill MD @ Jun 26 2019 2:37AM Signed by Dr. Marshall Churchill @ Jun 26 2019 2:47AM
[2019-06-26] MEDS: Pantoprazole 80 MG in Sodium Chloride 0.9% 20 ML IV STA (03:13)
[2019-06-26] MEDS: Pantoprazole 40 MG Vial ONE (03:16)
[2019-06-26] MEDS: Piperacillin/Tazobactam 3.375 GM in Sodium Chloride 0.9% 50 ML IV ONE (03:55)
[2019-06-26] MEDS: Vancomycin 1 GM AdvVial ONE (04:39)
[2019-06-26] MEDS: Sodium Chloride 0.9% 250 ML ONE (04:40)
[2019-06-26 05:07] VITALS: BP 77/44; PULSE 89
== END 2019-06-26 05:06 ==
LOC: MW.ED 00:56
DX: K81.0 Acute cholecystitis (principal); R65.10 Systemic inflammatory response syndrome (SIRS) of non-infectious origin without acute organ dysfunction; I95.9 Hypotension, unspecified; I10 Essential (primary) hypertension; I48.91 Unspecified atrial fibrillation; I25.2 Old myocardial infarction; Z88.5 Allergy status to narcotic agent; Z91.040 Latex allergy status; Z79.02 Long term (current) use of antithrombotics/antiplatelets; Z79.899 Other long term (current) drug therapy
CPT/HCPCS: 36415; 74178; 80053; 81003; 83605; 83690; 84484; 85025; 85610; 87040; 93005; 96361; 96365; 96367; 96375; 99285; C9113; J1170; J2270; J2405; J2543; J3370; J7030; J7050; Q9967